=== PATIENT | female | born 1965 | race Two or more races ===

== ENCOUNTER 2016-03-25 15:47 | Inpatient (IN) | payer OTHER ==
[2016-03-25 17:54] VITALS: BMI 26.9
--- NOTE | 2016-03-25 18:51 | HP ---
Admission ROS S - [facility] Chief Complaint: i want to go to rehab Allergies/Adverse Reactions: Allergies Allergy/AdvReac Type Severity Reaction Status Date / Time No Known Allergies Allergy Verified 03/25/16 18:02 History of Present Illness: 50 years old female with long history of alcohol nicotine dependence, denies medical issue has depression is admitted to rehab Exam Limitations: No Limitations - Ebola screening Have you traveled outside of the country in the last 21 days: No Have you had contact with anyone from an Ebola affected area: No Have you been sick,other than usual withdrawal symptoms: No Do you have a fever: No - Review of Systems Constitutional: Weight Stable EENT: reports: No Symptoms Reported Respiratory: reports: Productive cough Cardiac: reports: No Symptoms Reported GI: reports: Constipated : reports: Discharge Musculoskeletal: reports: No Symptoms Reported Integumentary: reports: No Symptoms Reported Neuro: reports: No Symptoms reported Endocrine: reports: No Symptoms Reported Hematology: reports: No Symptoms Reported Psychiatric: reports: Judgement Intact, Orientated x3, Depressed Other Systems: Reviewed and Negative Patient History - Patient Medical History Hx Anemia: No Hx Asthma: No Hx Chronic Obstructive Pulmonary Disease (COPD): No Hx Cancer: No Hx Cardiac Disorders: No Hx Congestive Heart Failure: No Hx Hypertension: No Hx Hypercholesterolemia: No Hx Pacemaker: No HX Cerebrovascular Accident: No Hx Seizures: No Hx Dementia: No Hx Diabetes: No Hx Gastrointestinal Disorders: No Hx Liver Disease: No Hx Genitourinary Disorders: No Hx Sexually Transmitted Disorders: No Hx Renal Disease (ESRD): No Hx Thyroid Disease: No Hx Human Immunodeficiency Virus (HIV): No Hx Hepatitis C: No Hx Depression: Yes (last dose "many years ago") Hx Suicide Attempt: Yes (10 + years ago) Hx Bipolar Disorder: No Hx Schizophrenia: No (denies ) - Patient Surgical History Past Surgical History: Yes Hx Neurologic Surgery: No Hx Cataract Extraction: No Hx Cardiac Surgery: No Hx Lung Surgery: No Hx Breast Surgery: No Hx Breast Biopsy: No Hx Abdominal Surgery: No Hx Appendectomy: No Hx Cholecystectomy: No Hx Genitourinary Surgery: No Hx Section: No Hx Orthopedic Surgery: No Other Surgical History: Tubal ligation 1996, Tonsillectomy 1991 Anesthesia Reaction: No - PPD History Previous Implant?: Yes Documented Results: Negative w/proof Implanted On Prior R Admission?: Yes Date: 11/14/15 PPD to be Administered?: No - Reproductive History Patient is a Female of Child Bearing Age (11 -55 yrs old): Yes Last Menstrual Period: 03/31/07 Patient : No - Smoking Cessation Smoking history: Current every day smoker Have you smoked in the past 12 months: Yes Aproximately how many cigarettes per day: 40 Cigars Per Day: 0 Hx Chewing Tobacco Use: No Initiated information on smoking cessation: Yes 'Breaking Loose' booklet given: 03/25/16 - Substance & Tx. History Hx Alcohol Use: Yes Hx Substance Use: Yes Substance Use Type: Alcohol, Cocaine Hx Substance Use Treatment: Yes - Substances Abused Alcohol Route: Oral Frequency: 1-2 times per week Amount used: fifth volka Age of first use: 5 Date of Last Use: 03/18/16 Crack Route: Smoking Frequency: Daily Amount used: 10 bags Age of first use: 21 Date of Last Use: 03/23/16 Family Disease History - Family Disease History Family Disease History: Diabetes: Brother, CA: Mother (), Other: Father ( ) Admission Physical Exam [facility] - Vital Signs Vital Signs: Vital Signs - 24 hr 03/25/16 17:51 Temperature 97.3 F L Pulse Rate 77 Respiratory 18 Rate Blood Pressure 111/68 - Physical General Appearance: Yes: No Apparent Distress, Nourished, Appropriately Dressed HEENTM: Yes: Hearing grossly Normal, Normal ENT Inspection, Normocephalic, Normal Voice Respiratory: Yes: Chest Non-Tender, Lungs Clear, Normal Breath Sounds, No Respiratory Distress, No Accessory Muscle Use Neck: Yes: Supple, Trachea in good position Breast: Yes: Breasts Symetrical Cardiology: Yes: Regular Rhythm, Regular Rate, S1, S2 Abdominal: Yes: Non Tender, Soft Genitourinary: Yes: Within Normal Limits Back: Yes: Normal Inspection Musculoskeletal: Yes: full range of Motion, Gait Steady Extremities: Yes: Normal Range of Motion, Non-Tender Neurological: Yes: Fully Oriented, Alert, Motor Strength 5/5, Normal Response, Depressed Affect Integumentary: Yes: Warm Lymphatic: Yes: Within Normal Limits - Diagnostic (1) Constipation Current Visit: Yes Status: Acute Qualifiers: Constipation type: slow transit constipation Qualified Code(s): K59.01 - Slow transit constipation (2) Nicotine dependence Current Visit: Yes Status: Acute Qualifiers: Nicotine product type: cigarettes Substance use status: in withdrawal Qualified Code(s): F17.213 - Nicotine dependence, cigarettes, with withdrawal (3) UTI (urinary tract infection) Current Visit: Yes Status: Acute Qualifiers: Hematuria presence: without hematuria (4) Alcohol dependence with uncomplicated withdrawal Current Visit: Yes Status: Acute Cleared for Admission [facility] - Detox or Rehab [facility] Level of Care: Observation Bed Claeared for Rehab Admission: Yes [facility] Breath Alcohol Content Breath Alcohol Content: 0 Urine Pregancy Test - Result Urine Test Results: Negative- NO Line Present Urine Drug Screen - Results Drug Screen Negative: No Urine Drug Screen Results: MARCO ANTONIO-Cocaine, OPI-Opiates, BZO-Benzodiazepines
[2016-03-25] MEDS ORDERED: LOPERAMIDE HCL 2 MG CAPSULE PO PRN (18:54)
[2016-03-25] MEDS ORDERED: MAGNESIUM CITRATE 300 ML BOTTLE PO PRN (18:54)
[2016-03-25] MEDS ORDERED: MAG HYDROX/AL HYDROX/SIMETH 30 ML UNIT-DOSE CUP PO PRN (18:54)
[2016-03-25] MEDS ORDERED: guaiFENesin/D-METHORPHAN HB 10 ML UNIT-DOSE CUPS PO PRN (18:54)
[2016-03-25] MEDS ORDERED: P-EPHED 60MG/TRIPROLIDI 2.5MG TABLET PO PRN (18:54)
[2016-03-25] MEDS ORDERED: MENTHOL/PHENOL 1 EACH UD MM PRN (18:54)
[2016-03-25] MEDS ORDERED: MAGNESIUM HYDROX 2400MG/30ML ORAL SUSPENSION 30 ML CUP PO PRN (18:54)
[2016-03-25] MEDS ORDERED: hydrOXYzine PAMOATE 50 MG CAPSULE (FP) PO PRN (18:54)
[2016-03-25] MEDS: diphenhydrAMINE HCL 50 MG CAPSULE PO PRN (21:42)
[2016-03-25] MEDS: SULFAMETHOXAZOLE/TRIMETHOPRIM 800MG/160MG D.S. TABLET PO SCH (21:42)
[2016-03-25] MEDS: THIAMINE HCL 100 MG TABLET (FP) PO SCH (21:42)
[2016-03-25 23:36] LABS: URINE APPEARANCE SLCLOUDY; URINE BILIRUBIN NEGATIVE (NEGATIVE); URINE BLOOD NEGATIVE (NEGATIVE); URINE COLOR YELLOW; URINE GLUCOSE (UA) NEGATIVE (NEGATIVE); URINE KETONE NEGATIVE (NEGATIVE); URINE NITRITE NEGATIVE (NEGATIVE); URINE PROTEIN NEGATIVE (NEGATIVE); URINE UROBILINOGEN NEGATIVE E.U./dl (0.2-1.0)
[2016-03-25 23:38] LABS: URINE LEUK ESTERASE 2+ (NEGATIVE)
[2016-03-26 00:10] LABS: URINE RBC <1 /hpf (0-3)
[2016-03-26 00:11] LABS: URINE BACTERIA RARE /hpf (NONE SEEN); URINE WBC 5 /hpf (3-5)
[2016-03-26] MEDS: SULFAMETHOXAZOLE/TRIMETHOPRIM 800MG/160MG D.S. TABLET PO SCH ×2 (09:47→21:34)
[2016-03-26] MEDS: NICOTINE 21 MG/24 HOURS TOPICAL PATCH TD SCH (09:47)
[2016-03-26] MEDS: PRENATAL VITAMINS W/ FOLIC ACID TABLET (FP) PO SCH (09:48)
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
[2016-03-26 10:10] LABS: MCH 30.2 pg (25.7-33.7); MCHC 33.6 g/dl (32.0-36.0); MEAN CELL VOLUME 89.8 fl (80-96); MEAN PLT VOLUME 9.3 fl (7.5-11.1); PLATELET COUNT 282 K/MM3 (134-434); RDW 14.2 % (11.6-15.6); WHITE BLOOD COUNT 5.1 K/mm3 (4.0-10.0)
[2016-03-26 10:12] LABS: ALBUMIN 3.8 g/dl (3.4-5.0); ANION GAP 9 (8-16); BILIRUBIN,TOTAL 0.2 mg/dL (0.2-1.0); CALCIUM 8.7 mg/dL (8.5-10.1); CO2 26 mmol/L (21-32); CREATININE 0.9 mg/dL (0.55-1.02); GLUCOSE,RANDOM 80 mg/dL (74-106); SGOT/AST 16 U/L (15-37); SGPT/ALT 17 U/L (12-78); TOT PROT 7.1 g/dl (6.4-8.2)
[2016-03-26 10:13] LABS: ALK PHOS 102 U/L (45-117)
[2016-03-26] MEDS ORDERED: PNEUMOC 13-VAL CONJ-DIP CRM/PF 0.5 ML DISP.SYRIN IM ONE (12:00)
[2016-03-26] MEDS ORDERED: PNEUMOCOCCAL 23 VACCINE 0.5 ML VIAL IM ONE (12:00)
[2016-03-26 12:52] LABS: HIV 1 & 2 AB NEGATIVE; HIV 1 AGp24 NEGATIVE
[2016-03-26] MEDS: PSYLLIUM 5.85 GM PACKET PO SCH (14:00)
--- NOTE | 2016-03-26 14:26 | EKG ---
Test Reason : Blood Pressure : / mmHG Vent. Rate : 080 BPM Atrial Rate : 080 BPM P-R Int : 132 ms QRS Dur : 088 ms QT Int : 380 ms P-R-T Axes : 068 002 044 degrees QTc Int : 438 ms NORMAL SINUS RHYTHM NORMAL ECG NO PREVIOUS ECGS AVAILABLE Confirmed by PAMELA MANE MD ([id number]) on 03/26/2016 2:26:04 PM Referred By: Confirmed By:PAMELA MANE MD
[2016-03-26] MEDS: NICOTINE POLACRILEX 2 MG GUM BC PRN (14:32)
[2016-03-26] MEDS: ACETAMINOPHEN 325 MG TABLET (FP) PO PRN (14:32)
[2016-03-26] MEDS: diphenhydrAMINE HCL 50 MG CAPSULE PO PRN (21:34)
[2016-03-26] MEDS: THIAMINE HCL 100 MG TABLET (FP) PO SCH (21:34)
[2016-03-27] MEDS: NICOTINE 21 MG/24 HOURS TOPICAL PATCH TD SCH (10:23)
[2016-03-27] MEDS: SULFAMETHOXAZOLE/TRIMETHOPRIM 800MG/160MG D.S. TABLET PO SCH ×2 (10:23→21:26)
[2016-03-27] MEDS: PSYLLIUM 5.85 GM PACKET PO SCH (10:23)
[2016-03-27] MEDS: PRENATAL VITAMINS W/ FOLIC ACID TABLET (FP) PO SCH (10:23)
[2016-03-27] MEDS: NICOTINE POLACRILEX 2 MG GUM BC PRN (10:29)
[2016-03-27 16:38] LABS: URINE APPEARANCE SLCLOUDY; URINE BILIRUBIN NEGATIVE (NEGATIVE); URINE BLOOD NEGATIVE (NEGATIVE); URINE COLOR LTYELLOW; URINE GLUCOSE (UA) NEGATIVE (NEGATIVE); URINE KETONE NEGATIVE (NEGATIVE); URINE LEUK ESTERASE NEGATIVE (NEGATIVE); URINE NITRITE NEGATIVE (NEGATIVE); URINE PROTEIN NEGATIVE (NEGATIVE); URINE UROBILINOGEN NEGATIVE E.U./dl (0.2-1.0)
[2016-03-27] MEDS: ACETAMINOPHEN 325 MG TABLET (FP) PO PRN (18:46)
[2016-03-27] MEDS: diphenhydrAMINE HCL 50 MG CAPSULE PO PRN (21:26)
[2016-03-27] MEDS: THIAMINE HCL 100 MG TABLET (FP) PO SCH (21:26)
[2016-03-28] MEDS: ACETAMINOPHEN 325 MG TABLET (FP) PO PRN ×2 (06:30→18:49)
[2016-03-28] MEDS: FLUoxetine HCL 20 MG CAPSULE (FP) PO SCH (10:08)
[2016-03-28] MEDS: NICOTINE 21 MG/24 HOURS TOPICAL PATCH TD SCH (10:08)
[2016-03-28] MEDS: SULFAMETHOXAZOLE/TRIMETHOPRIM 800MG/160MG D.S. TABLET PO SCH ×2 (10:09→21:21)
[2016-03-28] MEDS: PSYLLIUM 5.85 GM PACKET PO SCH (10:09)
[2016-03-28] MEDS: PRENATAL VITAMINS W/ FOLIC ACID TABLET (FP) PO SCH (10:09)
[2016-03-28] MEDS: NICOTINE POLACRILEX 2 MG GUM BC PRN (18:51)
[2016-03-28] MEDS: QUEtiapine FUMARATE 400 MG TABLET PO SCH (21:21)
[2016-03-28] MEDS: THIAMINE HCL 100 MG TABLET (FP) PO SCH (21:22)
[2016-03-29] MEDS: NICOTINE 21 MG/24 HOURS TOPICAL PATCH TD SCH (10:09)
[2016-03-29] MEDS: PSYLLIUM 5.85 GM PACKET PO SCH (10:09)
[2016-03-29] MEDS: PRENATAL VITAMINS W/ FOLIC ACID TABLET (FP) PO SCH (10:11)
[2016-03-29] MEDS: FLUoxetine HCL 20 MG CAPSULE (FP) PO SCH (10:11)
[2016-03-29] MEDS: SULFAMETHOXAZOLE/TRIMETHOPRIM 800MG/160MG D.S. TABLET PO SCH ×2 (10:11→21:16)
[2016-03-29] MEDS: NICOTINE POLACRILEX 2 MG GUM BC PRN (10:12)
[2016-03-29] MEDS: THIAMINE HCL 100 MG TABLET (FP) PO SCH (21:16)
[2016-03-29] MEDS: QUEtiapine FUMARATE 400 MG TABLET PO SCH (21:16)
[2016-03-30] MEDS: PSYLLIUM 5.85 GM PACKET PO SCH (09:58)
[2016-03-30] MEDS: NICOTINE 21 MG/24 HOURS TOPICAL PATCH TD SCH (09:58)
[2016-03-30] MEDS: SULFAMETHOXAZOLE/TRIMETHOPRIM 800MG/160MG D.S. TABLET PO SCH (09:58)
[2016-03-30] MEDS: FLUoxetine HCL 20 MG CAPSULE (FP) PO SCH (09:58)
[2016-03-30] MEDS: PRENATAL VITAMINS W/ FOLIC ACID TABLET (FP) PO SCH (09:58)
[2016-03-30] MEDS: PARoxetine HCL 20 MG TABLET (FP) PO SCH (18:42)
[2016-03-30] MEDS ORDERED: PT OWN MED DRAWER 7, Y5N ONE (19:40)
[2016-03-30] MEDS: QUEtiapine FUMARATE 400 MG TABLET PO SCH (21:36)
[2016-03-30] MEDS: THIAMINE HCL 100 MG TABLET (FP) PO SCH (21:36)
[2016-03-31] MEDS: PRENATAL VITAMINS W/ FOLIC ACID TABLET (FP) PO SCH (10:02)
[2016-03-31] MEDS: PARoxetine HCL 20 MG TABLET (FP) PO SCH (10:02)
[2016-03-31] MEDS: PSYLLIUM 5.85 GM PACKET PO SCH (10:03)
[2016-03-31] MEDS: NICOTINE POLACRILEX 2 MG GUM BC PRN (10:03)
[2016-03-31] MEDS: NICOTINE 21 MG/24 HOURS TOPICAL PATCH TD SCH (10:03)
[2016-03-31] MEDS: THIAMINE HCL 100 MG TABLET (FP) PO SCH (21:25)
[2016-03-31] MEDS: QUEtiapine FUMARATE 400 MG TABLET PO SCH (21:25)
[2016-04-01] MEDS: NICOTINE 21 MG/24 HOURS TOPICAL PATCH TD SCH (10:01)
[2016-04-01] MEDS: PRENATAL VITAMINS W/ FOLIC ACID TABLET (FP) PO SCH (10:01)
[2016-04-01] MEDS: PARoxetine HCL 20 MG TABLET (FP) PO SCH (10:01)
[2016-04-01] MEDS: PSYLLIUM 5.85 GM PACKET PO SCH (10:01)
[2016-04-01] MEDS: NICOTINE POLACRILEX 2 MG GUM BC PRN (10:03)
--- NOTE | 2016-04-01 14:24 | PN ---
[facility] Progress Note Note: PT. C/O PAIN,NUMBNESS & TINGLING LUE FROM C-SPINE. Vital Signs - 8 hr 04/01/16 07:01 Temperature 97.5 F L Pulse Rate 81 Respiratory 18 Rate Blood Pressure 110/72 Laboratory Tests 03/25/16 03/26/16 03/26/16 22:28 07:00 07:15 WBC 5.1 RBC 4.20 Hgb 12.7 Hct 37.7 MCV 89.8 MCHC 33.6 RDW 14.2 Plt Count 282 MPV 9.3 Sodium Potassium Chloride Carbon Dioxide Anion Gap BUN Creatinine Creat Clearance w eGFR Random Glucose Calcium Total Bilirubin AST ALT Alkaline Phosphatase Total Protein Albumin Urine Color Yellow Urine Appearance Slcloudy Urine pH 6.0 Ur Specific [place] 1.009 Urine Protein Negative Urine Glucose (UA) Negative Urine Ketones Negative Urine Blood Negative Urine Nitrite Negative Urine Bilirubin Negative Urine Urobilinogen Negative Ur Leukocyte Esterase 2+ H D Urine RBC <1 Urine WBC 5 Ur Epithelial Cells Rare Urine Bacteria Rare RPR Titer HIV 1&2 Antibody Screen Negative HIV P24 Antigen Negative 03/26/16 03/26/16 03/27/16 07:15 07:15 16:25 WBC RBC Hgb Hct MCV MCHC RDW Plt Count MPV Sodium 141 Potassium 4.3 Chloride 106 Carbon Dioxide 26 Anion Gap 9 BUN 15 Creatinine 0.9 Creat Clearance w eGFR > 60 Random Glucose 80 Calcium 8.7 Total Bilirubin 0.2 D AST 16 ALT 17 Alkaline Phosphatase 102 Total Protein 7.1 Albumin 3.8 Urine Color Ltyellow Urine Appearance Slcloudy Urine pH 6.0 Ur Specific [place] 1.019 Urine Protein Negative Urine Glucose (UA) Negative Urine Ketones Negative Urine Blood Negative Urine Nitrite Negative Urine Bilirubin Negative Urine Urobilinogen Negative Ur Leukocyte Esterase Negative Urine RBC Urine WBC Ur Epithelial Cells Urine Bacteria RPR Titer Nonreactive HIV 1&2 Antibody Screen HIV P24 Antigen X-RAY = DEGENERATIVE CHANGES FROM C3 TO C5 WITH ANTEROLISTHESIS P : CONTINUE NSAID REFER TO NEUROLOGY CLINIC
[2016-04-01] MEDS: LIDOCAINE 5% TOPICAL PATCH TP SCH (14:49)
[2016-04-01] MEDS: QUEtiapine FUMARATE 400 MG TABLET PO SCH (21:17)
[2016-04-01] MEDS: THIAMINE HCL 100 MG TABLET (FP) PO SCH (21:17)
[2016-04-02] MEDS: PSYLLIUM 5.85 GM PACKET PO SCH (10:14)
[2016-04-02] MEDS: LIDOCAINE 5% TOPICAL PATCH TP SCH (10:14)
[2016-04-02] MEDS: PARoxetine HCL 20 MG TABLET (FP) PO SCH (10:14)
[2016-04-02] MEDS: PRENATAL VITAMINS W/ FOLIC ACID TABLET (FP) PO SCH (10:14)
[2016-04-02] MEDS: NICOTINE 21 MG/24 HOURS TOPICAL PATCH TD SCH (10:15)
[2016-04-02] MEDS: NICOTINE POLACRILEX 2 MG GUM BC PRN (10:17)
[2016-04-02] MEDS: IBUPROFEN 400 MG TABLET (FP) PO PRN (10:51)
[2016-04-02] MEDS: QUEtiapine FUMARATE 400 MG TABLET PO SCH (21:20)
[2016-04-02] MEDS: THIAMINE HCL 100 MG TABLET (FP) PO SCH (21:20)
[2016-04-03] MEDS: LIDOCAINE 5% TOPICAL PATCH TP SCH (10:09)
[2016-04-03] MEDS: NICOTINE 21 MG/24 HOURS TOPICAL PATCH TD SCH (10:12)
[2016-04-03] MEDS: PARoxetine HCL 20 MG TABLET (FP) PO SCH (10:13)
[2016-04-03] MEDS: PRENATAL VITAMINS W/ FOLIC ACID TABLET (FP) PO SCH (10:13)
[2016-04-03] MEDS: PSYLLIUM 5.85 GM PACKET PO SCH (10:13)
[2016-04-03] MEDS: NICOTINE POLACRILEX 2 MG GUM BC PRN (10:14)
[2016-04-03] MEDS: IBUPROFEN 400 MG TABLET (FP) PO PRN (13:39)
--- NOTE | 2016-04-03 13:48 | PN ---
Psychiatric Progress Note Vital Signs: Vital Signs Period Temp Pulse Resp BP Sys/Clay Pulse Ox Last 24 Hr 97.5 F 88 16-16 91/59 Date of Session: 04/03/16 Chief Complaint:: My sleep is still a problem. HPI: Patient addressed Alcohol,Cocaine and Opioid dependence comorbid with Substance induced mood and sleep disorder. ROS: Significant for UTI. Current Medications: Active Medications Generic Name Dose Route Start Last Admin Trade Name Freq PRN Reason Stop Dose Admin Acetaminophen 650 mg 03/25/16 18:54 03/28/16 18:49 Tylenol - PO 650 mg Q4H PRN Administration PAIN Al Hydroxide/Mg Hydroxide 30 ml 03/25/16 18:54 Mylanta Oral Suspension - PO Q6H PRN DYSPEPSIA Diphenhydramine HCl 50 mg 03/25/16 18:54 03/27/16 21:26 Benadryl - PO 50 mg HSMR1 PRN Administration INSOMNIA Eucalyptus/Menthol/Phenol/Sorbitol 1 each 03/25/16 18:54 Cepastat Lozenge - MM Q4H PRN SORE THROAT Guaifenesin 10 ml 03/25/16 18:54 Robitussin Dm - PO Q6H PRN COUGH Hydroxyzine Pamoate 50 mg 03/25/16 18:54 Vistaril - PO Q4H PRN AGITATION Ibuprofen 400 mg 03/25/16 18:54 04/03/16 13:39 Motrin - PO 400 mg Q6H PRN Administration SEVERE PAIN Lidocaine 1 patch 04/01/16 14:30 04/03/16 10:09 Lidoderm Patch - TP 1 patch DAILY ADRIANA Administration Loperamide HCl 4 mg 03/25/16 18:54 Imodium - PO Q6H PRN DIARRHEA Magnesium Citrate 300 ml 03/25/16 18:54 Citroma - PO Q48H PRN CONSTIPATION Magnesium Hydroxide 30 ml 03/25/16 18:54 Milk Of Magnesia - PO DAILY PRN CONSTIPATION Nicotine 21 mg 03/26/16 10:00 04/03/16 10:12 Nicoderm Patch - TD 21 mg DAILY ADRIANA Administration Nicotine Polacrilex 2 mg 03/25/16 18:54 04/03/16 10:14 Nicorette Gum - BC 2 mg Q2H PRN Administration NICOTINE REPLACEMENT RX Paroxetine HCl 40 mg 03/30/16 16:15 04/03/16 10:13 Paxil - PO 40 mg DAILY ADRIANA Administration Multivit/Folic Acid/Iron 1 tab 03/26/16 10:00 04/03/16 10:13 Vitamins (Sjr) - PO 1 tab DAILY ADRIANA Administration Pseudoephedrine/Triprolidine 1 combo 03/25/16 18:54 Actifed - PO TID PRN NASAL CONGESTION Psyllium Hydrophilic Mucilloid 5.85 gm 03/26/16 13:00 04/03/16 10:13 Metamucil (Sugar-Free) - PO 5.85 gm DAILY ADRIANA Administration Quetiapine Fumarate 400 mg 03/28/16 22:00 04/02/16 21:20 Seroquel - PO 400 mg HS ADRIANA Administration Thiamine HCl 100 mg 03/25/16 22:00 04/02/16 21:20 Vitamin B1 - PO 100 mg HS ADRIANA Administration Trazodone HCl 100 mg 04/03/16 22:00 Desyrel - PO HS ADRIANA Current Side Effect: No Lab tests ordered: No Lab tests reviewed: Yes Provider note:: Chart was reviuewed,patient was evaluated and treatment plan including medication management was discussed with the patient as well.Patient addressed serios sleeping difficulties,inability to fall asleep,interrupted sleep pattern.Properties of Trazodone has been discussed with the patient including side effects,benefits and dose adjustemnet.Trazodone 100 mg po hs will be started tonight. Supportive therapy proivided. Total face to face time:: 30 Psychiatric Treatment Plan - Problem List (1) Nicotine dependence Current Visit: Yes Qualifiers: Nicotine product type: cigarettes Substance use status: in withdrawal Qualified Code(s): F17.213 - Nicotine dependence, cigarettes, with withdrawal (2) UTI (urinary tract infection) Current Visit: Yes Qualifiers: Hematuria presence: without hematuria (3) Bacterial vaginosis Current Visit: Yes (4) Alcohol dependence Current Visit: Yes (5) Cocaine dependence Current Visit: Yes (6) Opioid dependence Current Visit: Yes
[2016-04-03] MEDS: THIAMINE HCL 100 MG TABLET (FP) PO SCH (21:36)
[2016-04-03] MEDS: QUEtiapine FUMARATE 400 MG TABLET PO SCH (21:36)
[2016-04-03] MEDS: traZODone HCL 100 MG TABLET (FP) PO SCH (21:36)
[2016-04-04] MEDS: PRENATAL VITAMINS W/ FOLIC ACID TABLET (FP) PO SCH (09:00)
[2016-04-04] MEDS: PARoxetine HCL 20 MG TABLET (FP) PO SCH (09:01)
[2016-04-04] MEDS: IBUPROFEN 400 MG TABLET (FP) PO PRN (09:01)
[2016-04-04] MEDS: PSYLLIUM 5.85 GM PACKET PO SCH (09:57)
[2016-04-04] MEDS: NICOTINE 21 MG/24 HOURS TOPICAL PATCH TD SCH (09:57)
[2016-04-04] MEDS: NICOTINE POLACRILEX 2 MG GUM BC PRN (09:59)
[2016-04-04] MEDS: LIDOCAINE 5% TOPICAL PATCH TP SCH (09:59)
[2016-04-04] MEDS: THIAMINE HCL 100 MG TABLET (FP) PO SCH (21:27)
[2016-04-04] MEDS: QUEtiapine FUMARATE 400 MG TABLET PO SCH (21:27)
[2016-04-04] MEDS: traZODone HCL 100 MG TABLET (FP) PO SCH (21:27)
[2016-04-05] MEDS: NICOTINE POLACRILEX 2 MG GUM BC PRN (08:49)
[2016-04-05] MEDS: IBUPROFEN 400 MG TABLET (FP) PO PRN (08:49)
[2016-04-05] MEDS: PRENATAL VITAMINS W/ FOLIC ACID TABLET (FP) PO SCH (09:46)
[2016-04-05] MEDS: LIDOCAINE 5% TOPICAL PATCH TP SCH (09:46)
[2016-04-05] MEDS: PSYLLIUM 5.85 GM PACKET PO SCH (09:46)
[2016-04-05] MEDS: PARoxetine HCL 20 MG TABLET (FP) PO SCH (09:46)
[2016-04-05] MEDS: NICOTINE 21 MG/24 HOURS TOPICAL PATCH TD SCH (09:47)
[2016-04-05] MEDS: THIAMINE HCL 100 MG TABLET (FP) PO SCH (21:37)
[2016-04-05] MEDS: traZODone HCL 100 MG TABLET (FP) PO SCH (21:37)
[2016-04-05] MEDS: QUEtiapine FUMARATE 400 MG TABLET PO SCH (21:37)
[2016-04-06] MEDS: PARoxetine HCL 20 MG TABLET (FP) PO SCH (10:01)
[2016-04-06] MEDS: NICOTINE 21 MG/24 HOURS TOPICAL PATCH TD SCH (10:01)
[2016-04-06] MEDS: LIDOCAINE 5% TOPICAL PATCH TP SCH (10:01)
[2016-04-06] MEDS: NICOTINE POLACRILEX 2 MG GUM BC PRN (10:01)
[2016-04-06] MEDS: PSYLLIUM 5.85 GM PACKET PO SCH (10:01)
[2016-04-06] MEDS: PRENATAL VITAMINS W/ FOLIC ACID TABLET (FP) PO SCH (10:01)
[2016-04-06] MEDS: IBUPROFEN 400 MG TABLET (FP) PO PRN (10:03)
[2016-04-06] MEDS: THIAMINE HCL 100 MG TABLET (FP) PO SCH (21:20)
[2016-04-06] MEDS: traZODone HCL 100 MG TABLET (FP) PO SCH (21:20)
[2016-04-06] MEDS: QUEtiapine FUMARATE 400 MG TABLET PO SCH (21:20)
[2016-04-07] MEDS: LIDOCAINE 5% TOPICAL PATCH TP SCH (09:49)
[2016-04-07] MEDS: PSYLLIUM 5.85 GM PACKET PO SCH (09:49)
[2016-04-07] MEDS: NICOTINE 21 MG/24 HOURS TOPICAL PATCH TD SCH (09:50)
[2016-04-07] MEDS: PARoxetine HCL 20 MG TABLET (FP) PO SCH (09:51)
[2016-04-07] MEDS: PRENATAL VITAMINS W/ FOLIC ACID TABLET (FP) PO SCH (09:51)
[2016-04-07] MEDS: IBUPROFEN 400 MG TABLET (FP) PO PRN (09:52)
[2016-04-07] MEDS: NICOTINE POLACRILEX 2 MG GUM BC PRN (09:53)
--- NOTE | 2016-04-07 14:22 | PN ---
[facility] Progress Note Note: PT. C/O HERPETIC LESION ON LABIA,SHE HAS NOT HAD AN OUT BREAK FOR SOMETIME. P : VALTREX 500MG BID
[2016-04-07] MEDS ORDERED: PT OWN MED DRAWER 7, Y5N ONE (20:29)
[2016-04-07] MEDS: traZODone HCL 100 MG TABLET (FP) PO SCH (21:24)
[2016-04-07] MEDS: THIAMINE HCL 100 MG TABLET (FP) PO SCH (21:24)
[2016-04-07] MEDS: valACYclovir HCL 500 MG TABLET (FP) PO SCH (21:24)
[2016-04-07] MEDS: QUEtiapine FUMARATE 400 MG TABLET PO SCH (21:24)
[2016-04-08] MEDS: NICOTINE POLACRILEX 2 MG GUM BC PRN (10:22)
[2016-04-08] MEDS: PRENATAL VITAMINS W/ FOLIC ACID TABLET (FP) PO SCH (10:22)
[2016-04-08] MEDS: IBUPROFEN 400 MG TABLET (FP) PO PRN (10:22)
[2016-04-08] MEDS: valACYclovir HCL 500 MG TABLET (FP) PO SCH ×2 (10:22→21:26)
[2016-04-08] MEDS: PARoxetine HCL 20 MG TABLET (FP) PO SCH (10:23)
[2016-04-08] MEDS: NICOTINE 21 MG/24 HOURS TOPICAL PATCH TD SCH (10:23)
[2016-04-08] MEDS: LIDOCAINE 5% TOPICAL PATCH TP SCH (10:23)
[2016-04-08] MEDS: PSYLLIUM 5.85 GM PACKET PO SCH (10:24)
[2016-04-08] MEDS: ACETAMINOPHEN 325 MG TABLET (FP) PO PRN (15:35)
[2016-04-08] MEDS ORDERED: PT OWN MED DRAWER 7, Y5N ONE (19:31)
[2016-04-08] MEDS: QUEtiapine FUMARATE 400 MG TABLET PO SCH (21:26)
[2016-04-08] MEDS: traZODone HCL 100 MG TABLET (FP) PO SCH (21:26)
[2016-04-08] MEDS: THIAMINE HCL 100 MG TABLET (FP) PO SCH (21:26)
[2016-04-09] MEDS ORDERED: PT OWN MED DRAWER 7, Y5N ONE (08:18)
[2016-04-09] MEDS: PSYLLIUM 5.85 GM PACKET PO SCH (09:59)
[2016-04-09] MEDS: LIDOCAINE 5% TOPICAL PATCH TP SCH (09:59)
[2016-04-09] MEDS: NICOTINE 21 MG/24 HOURS TOPICAL PATCH TD SCH (10:00)
[2016-04-09] MEDS: valACYclovir HCL 500 MG TABLET (FP) PO SCH ×2 (10:00→21:37)
[2016-04-09] MEDS: PRENATAL VITAMINS W/ FOLIC ACID TABLET (FP) PO SCH (10:00)
[2016-04-09] MEDS: PARoxetine HCL 20 MG TABLET (FP) PO SCH (10:00)
[2016-04-09] MEDS: IBUPROFEN 400 MG TABLET (FP) PO PRN ×2 (10:01→21:36)
[2016-04-09] MEDS: NICOTINE POLACRILEX 2 MG GUM BC PRN (10:02)
[2016-04-09] MEDS: traZODone HCL 100 MG TABLET (FP) PO SCH (21:37)
[2016-04-09] MEDS: QUEtiapine FUMARATE 400 MG TABLET PO SCH (21:37)
[2016-04-09] MEDS: THIAMINE HCL 100 MG TABLET (FP) PO SCH (21:37)
[2016-04-10] MEDS ORDERED: PT OWN MED DRAWER 7, Y5N ONE (08:38)
[2016-04-10] MEDS: PSYLLIUM 5.85 GM PACKET PO SCH (10:10)
[2016-04-10] MEDS: PRENATAL VITAMINS W/ FOLIC ACID TABLET (FP) PO SCH (10:10)
[2016-04-10] MEDS: valACYclovir HCL 500 MG TABLET (FP) PO SCH ×2 (10:10→21:21)
[2016-04-10] MEDS: PARoxetine HCL 20 MG TABLET (FP) PO SCH (10:10)
[2016-04-10] MEDS: LIDOCAINE 5% TOPICAL PATCH TP SCH (10:11)
[2016-04-10] MEDS: NICOTINE 21 MG/24 HOURS TOPICAL PATCH TD SCH (10:11)
[2016-04-10] MEDS: THIAMINE HCL 100 MG TABLET (FP) PO SCH (21:20)
[2016-04-10] MEDS: QUEtiapine FUMARATE 400 MG TABLET PO SCH (21:20)
[2016-04-10] MEDS: traZODone HCL 100 MG TABLET (FP) PO SCH (21:21)
[2016-04-11] MEDS: LIDOCAINE 5% TOPICAL PATCH TP SCH (09:09)
[2016-04-11] MEDS: NICOTINE 21 MG/24 HOURS TOPICAL PATCH TD SCH (09:10)
[2016-04-11] MEDS: PARoxetine HCL 20 MG TABLET (FP) PO SCH (09:10)
[2016-04-11] MEDS: PSYLLIUM 5.85 GM PACKET PO SCH (09:10)
[2016-04-11] MEDS: IBUPROFEN 400 MG TABLET (FP) PO PRN ×2 (09:11→18:57)
[2016-04-11] MEDS: PRENATAL VITAMINS W/ FOLIC ACID TABLET (FP) PO SCH (09:11)
[2016-04-11] MEDS: valACYclovir HCL 500 MG TABLET (FP) PO SCH ×2 (09:11→21:29)
[2016-04-11] MEDS: NICOTINE POLACRILEX 2 MG GUM BC PRN (09:12)
[2016-04-11] MEDS: THIAMINE HCL 100 MG TABLET (FP) PO SCH (21:29)
[2016-04-11] MEDS: QUEtiapine FUMARATE 400 MG TABLET PO SCH (21:29)
[2016-04-11] MEDS: traZODone HCL 100 MG TABLET (FP) PO SCH (21:29)
[2016-04-12] MEDS: NICOTINE 21 MG/24 HOURS TOPICAL PATCH TD SCH (09:59)
[2016-04-12] MEDS: PRENATAL VITAMINS W/ FOLIC ACID TABLET (FP) PO SCH (10:00)
[2016-04-12] MEDS: PARoxetine HCL 20 MG TABLET (FP) PO SCH (10:00)
[2016-04-12] MEDS: valACYclovir HCL 500 MG TABLET (FP) PO SCH ×2 (10:00→21:10)
[2016-04-12] MEDS: PSYLLIUM 5.85 GM PACKET PO SCH (10:01)
[2016-04-12] MEDS: LIDOCAINE 5% TOPICAL PATCH TP SCH (10:01)
[2016-04-12] MEDS: IBUPROFEN 400 MG TABLET (FP) PO PRN (10:01)
[2016-04-12] MEDS: NICOTINE POLACRILEX 2 MG GUM BC PRN (10:02)
[2016-04-12] MEDS: THIAMINE HCL 100 MG TABLET (FP) PO SCH (21:10)
[2016-04-12] MEDS: traZODone HCL 100 MG TABLET (FP) PO SCH (21:10)
[2016-04-12] MEDS: QUEtiapine FUMARATE 400 MG TABLET PO SCH (21:10)
[2016-04-13] MEDS: PRENATAL VITAMINS W/ FOLIC ACID TABLET (FP) PO SCH (10:01)
[2016-04-13] MEDS: PARoxetine HCL 20 MG TABLET (FP) PO SCH (10:01)
[2016-04-13] MEDS: valACYclovir HCL 500 MG TABLET (FP) PO SCH ×2 (10:01→21:26)
[2016-04-13] MEDS: NICOTINE 21 MG/24 HOURS TOPICAL PATCH TD SCH (10:02)
[2016-04-13] MEDS: LIDOCAINE 5% TOPICAL PATCH TP SCH (10:02)
[2016-04-13] MEDS: NICOTINE POLACRILEX 2 MG GUM BC PRN (10:04)
[2016-04-13] MEDS: PSYLLIUM 5.85 GM PACKET PO SCH (10:04)
[2016-04-13] MEDS: QUEtiapine FUMARATE 400 MG TABLET PO SCH (21:26)
[2016-04-13] MEDS: THIAMINE HCL 100 MG TABLET (FP) PO SCH (21:26)
[2016-04-13] MEDS: IBUPROFEN 400 MG TABLET (FP) PO PRN (21:27)
[2016-04-13] MEDS: traZODone HCL 100 MG TABLET (FP) PO SCH (21:29)
[2016-04-14 07:30] VITALS: BP 94/62; PULSE 85; TEMP 98.1
[2016-04-14] MEDS ORDERED: PT OWN MED DRAWER 7, Y5N ONE (09:10)
[2016-04-14] MEDS: PRENATAL VITAMINS W/ FOLIC ACID TABLET (FP) PO SCH (09:12)
[2016-04-14] MEDS: valACYclovir HCL 500 MG TABLET (FP) PO SCH (09:12)
[2016-04-14] MEDS: NICOTINE 21 MG/24 HOURS TOPICAL PATCH TD SCH (09:12)
[2016-04-14] MEDS: LIDOCAINE 5% TOPICAL PATCH TP SCH (09:12)
[2016-04-14] MEDS: PARoxetine HCL 20 MG TABLET (FP) PO SCH (09:12)
[2016-04-14] MEDS: PSYLLIUM 5.85 GM PACKET PO SCH (09:13)
[2016-04-14] MEDS: NICOTINE POLACRILEX 2 MG GUM BC PRN (09:14)
== END 2016-04-14 09:17 | disposition home or self-care (01) | DRG 772 ==
LOC: YASAS 15:47 → Y3W 18:33 → Y3E 03-26 13:08
PROVIDERS: ADMIT Psychiatry & Neurology Psychiatry; ATTEND Psychiatry & Neurology Psychiatry
PROC: HZ42ZZZ Group Counseling for Substance Abuse Treatment, Cognitive-Behavioral (ICD-10-PCS; principal; 2016-04-14)
DX: F10.230 Alcohol dependence with withdrawal, uncomplicated (principal); F14.20 Cocaine dependence, uncomplicated; F17.213 Nicotine dependence, cigarettes, with withdrawal; N39.0 Urinary tract infection, site not specified; K59.01 Slow transit constipation
CPT/HCPCS: 36415; 72050-TC; 80053; 81003; 81015; 85027; 86593; 87389; 90732; 93005; 93010; G0009

== ENCOUNTER 2018-10-04 12:04 | Inpatient (IN) | payer OTHER ==
[2018-10-04 12:44] VITALS: BMI 24.6
--- NOTE | 2018-10-04 14:23 | HP ---
CIWA Score Nausea/Vomitin-Mild Nausea/No Vomiting Muscle Tremors: 1-None Visible, but [place] Anxiety: 3 Agitation: 3 Paroxysmal Sweats: No Perspiration Orientation: 1-Uncertain about Date Tacttile Disturbances: 0-None Auditory Disturbances: 0-None Visual Disturbances: 0-None Headache: 3-Moderate (patient wants to enter rehab just relapsed 9 months ago. Patient sober from 04/17 till 9 months ago) CIWA-Ar Total Score: 12 - Admission Criteria [facility] Guidelines: Admission for Medically Managed Detox: Requires at least one of the followin. CIWA greater than 12 2. Seizures within the past 24 hours 3. Delirium tremens within the past 24 hours 4. Hallucinations within the past 24 hours 5. Acute intervention needed for co occurring medical disorder 6. Acute intervention needed for co occurring psychiatric disorder 7. Severe withdrawal that cannot be handled at a lower level of care (continued vomiting, continued diarrhea, abnormal vital signs) requiring intravenous medication and/or fluids 8. Admission ROS [facility] Chief Complaint: " I am tired and I didn't mean to relapsed but it happened." Allergies/Adverse Reactions: Allergies Allergy/AdvReac Type Severity Reaction Status Date / Time No Known Allergies Allergy Verified 03/25/16 18:02 History of Present Illness: Patient is a 53 year old female with history of cocaine/crack, alcohol dependence, and benzodiazpine use. Patient is now drinks 1 bottle 1/2 pint vodka every other day. Patient is using crack $500-600/day. Patient is illicitly buying 5 pills per day, $50/day. Patient smokes ciggarettes 5 per day. PMHx: Heart murmur, Scoliosis, Hyperlipidemia, Pre-cancerous changes of cervix. PSurg Hx: Tubal ligation, Tonsillectomy PsychHx: Bipolar, Depression, Shizophrenia with psychotic features. 5 meds but last taken 2 weeks ago. Patient denies legal issues. Patient has family support systems in place. Exam Limitations: No Limitations - Ebola screening Have you traveled outside of the country in the last 21 days: No Have you had contact with anyone from an Ebola affected area: No Do you have a fever: No - Review of Systems Constitutional: Chills EENT: reports: No Symptoms Reported Respiratory: reports: No Symptoms reported Cardiac: reports: No Symptoms Reported GI: reports: No Symptoms Reported : reports: No Symptoms Reported Musculoskeletal: reports: No Symptoms Reported Integumentary: reports: No Symptoms Reported Neuro: reports: Headache Endocrine: reports: No Symptoms Reported Hematology: reports: No Symptoms Reported Psychiatric: reports: Orientated x3, Anxious Patient History - Patient Medical History Hx Anemia: No Hx Asthma: No Hx Chronic Obstructive Pulmonary Disease (COPD): No Hx Cancer: No Hx Cardiac Disorders: No Hx Congestive Heart Failure: No Hx Hypertension: No Hx Hypercholesterolemia: No Hx Pacemaker: No HX Cerebrovascular Accident: No Hx Seizures: No Hx Dementia: No Hx Diabetes: No Hx Gastrointestinal Disorders: No Hx Liver Disease: No Hx Genitourinary Disorders: No Hx Sexually Transmitted Disorders: Yes Hx Renal Disease (ESRD): No Hx Thyroid Disease: No Hx Human Immunodeficiency Virus (HIV): No Hx Hepatitis C: No Hx Depression: Yes (last dose "many years ago") Hx Suicide Attempt: Yes (10 + years ago) Hx Bipolar Disorder: No Hx Schizophrenia: No (denies ) - Patient Surgical History Past Surgical History: Yes Hx Neurologic Surgery: No Hx Cataract Extraction: No Hx Cardiac Surgery: No Hx Lung Surgery: No Hx Breast Surgery: No Hx Breast Biopsy: No Hx Abdominal Surgery: No Hx Appendectomy: No Hx Cholecystectomy: No Hx Genitourinary Surgery: No Hx Section: No Hx Orthopedic Surgery: No Other Surgical History: Tubal ligation 1996, Tonsillectomy 1991 Anesthesia Reaction: No - PPD History Date: 11/14/15 Results: 0mm - Reproductive History Last Menstrual Period: 03/31/07 - Smoking Cessation Smoking history: Current every day smoker Have you smoked in the past 12 months: Yes Aproximately how many cigarettes per day: 40 Cigars Per Day: 0 Hx Chewing Tobacco Use: No Initiated information on smoking cessation: Yes 'Breaking Loose' booklet given: 10/04/18 - Substance & Tx. History Hx Alcohol Use: Yes (uses 1/2 pint every other day) Hx Substance Use: Yes Substance Use Type: Cocaine Hx Substance Use Treatment: Yes (last detox and rehab in 04/2016) - Substances abused Crack Substance route: Smoking Frequency: Daily Amount used: $500 Age of first use: 18 Date of last use: 10/02/18 Family Disease History - Family Disease History Family Disease History: Diabetes: Brother, CA: Mother (), Other: Father ( ) Admission Physical Exam [facility] - Vital Signs Vital Signs: Vital Signs - 24 hr 10/04/18 12:32 Temperature 98.1 F Pulse Rate 73 Respiratory 18 Rate Blood Pressure 94/61 - Physical General Appearance: Yes: Moderate Distress HEENTM: Yes: EOMI, Hearing grossly Normal, Normocephalic, Normal Voice, BRITTA, Pharynx Normal Respiratory: Yes: Chest Non-Tender, Lungs Clear, Normal Breath Sounds, No Accessory Muscle Use Neck: Yes: No masses,lesions,Nodules Breast: Yes: Breast Exam Deferred Cardiology: Yes: Regular Rhythm, Regular Rate, S1, S2 Abdominal: Yes: Soft, Increased Bowel Sounds Genitourinary: Yes: Other (foul smelling urine) Back: Yes: Normal Inspection Musculoskeletal: Yes: full range of Motion, Gait Steady Extremities: Yes: Normal Capillary Refill, Normal Inspection, Non-Tender Neurological: Yes: manager truck II-XII NML intact, Fully Oriented, Alert, Motor Strength 5/5 Integumentary: Yes: Normal Color, Warm Lymphatic: Yes: Within Normal Limits - Diagnostic (1) Nicotine dependence Current Visit: Yes Status: Acute Qualifiers: Nicotine product type: cigarettes Substance use status: in withdrawal Qualified Code(s): F17.213 - Nicotine dependence, cigarettes, with withdrawal (2) Alcohol dependence Current Visit: Yes Status: Chronic (3) Cocaine dependence Current Visit: Yes Status: Chronic Cleared for Admission [facility] - Detox or Rehab [facility] Level of Care: Medically Managed Screened but not Admitted - Documentation of Visit Screened but not Admitted: No Breathalyzer - Breathalyzer Breathalyzer: 0 Vital Signs - Vital Signs Vital signs refused: No Temperature: 98.1 F Temperature source: Oral Pulse Rate: 73 Respiratory Rate: 18 Blood Pressure: 94/61 BP Location: Left Arm Blood Pressure position: Sitting - Height Height: 4 ft 11 in - Weight Weight: 122 lb Weight measurement method: Standing scale - BMI Body Mass Index (BMI): 24.6 - Bowel Function Bowel Movement: No POC Urine test - Test device test lot number: not applicable Urine Drug Screen - Test Device Lot number: [id number] Expiration date: 10/28/18 - Control Is test valid?: Yes - Results Drug screen NEGATIVE: No Urine drug screen results: MARCO ANTONIO-Cocaine, BZO-Benzodiazepines Inpatient Rehab Admission - Rehab Decision to Admit Inpatient rehab admission?: Yes - Initial Determination Are CD services needed?: Yes Free of communicable disease: Yes Not in need of hospitalization: Yes - Rehab Admission Criteria Previous failed treatment: Yes Poor recovery environment: Yes Comorbidities: Yes Lacks judgement: Yes Patient is meeting Inpatient Rehab admission criteria:: Yes
[2018-10-04] MEDS ORDERED: guaiFENesin 200 MG/10 ML 10 ML UNIT-DOSE CUPS PO PRN (14:31)
[2018-10-04] MEDS ORDERED: ACETAMINOPHEN 325 MG TABLET (FP) PO PRN (14:31)
[2018-10-04] MEDS ORDERED: MAGNESIUM CITRATE 300 ML BOTTLE PO PRN (14:31)
[2018-10-04] MEDS ORDERED: MAGNESIUM HYDROX 2400MG/30ML ORAL SUSPENSION 30 ML CUP PO PRN (14:31)
[2018-10-04] MEDS ORDERED: P-EPHED 60MG/TRIPROLIDI 2.5MG TABLET PO PRN (14:31)
[2018-10-04] MEDS ORDERED: LOPERAMIDE HCL 2 MG CAPSULE PO PRN (14:31)
[2018-10-04] MEDS ORDERED: MENTHOL/PHENOL 1 EACH UD MM PRN (14:31)
[2018-10-04 16:33] LABS: HEMATOCRIT 38.5 % (32.4-45.2); HEMOGLOBIN 13.1 GM/dL (10.7-15.3); MCHC 34.1 g/dl (32.0-36.0); MEAN CELL VOLUME 90.9 fl (80-96); MEAN PLT VOLUME 9.9 fl (7.5-11.1); PLATELET COUNT 302 K/MM3 (134-434); RBC 4.23 M/mm3 (3.60-5.2); RDW 13.6 % (11.6-15.6); WHITE BLOOD COUNT 7.6 K/mm3 (4.0-10.0)
[2018-10-04 16:43] LABS: BILIRUBIN,TOTAL 0.2 mg/dL (0.2-1); BLOOD UREA NITROGEN 14.1 mg/dL (7-18); CALCIUM 9.3 mg/dL (8.5-10.1); CREATININE 0.7 mg/dL (0.55-1.3); POTASSIUM 4.1 mmol/L (3.5-5.1); TOT PROT 7.7 g/dl (6.4-8.2)
[2018-10-04] MEDS: NICOTINE 14 MG/24 HOURS TOPICAL PATCH TD SCH (17:16)
[2018-10-04] MEDS: MELATONIN 5 MG TABLETS PO PRN (21:53)
[2018-10-04] MEDS: THIAMINE HCL 100 MG TABLET (FP) PO SCH (21:53)
[2018-10-05] MEDS: PRENATAL VITAMINS W/ FOLIC ACID TABLET (FP) PO SCH (09:47)
[2018-10-05] MEDS: NICOTINE 14 MG/24 HOURS TOPICAL PATCH TD SCH (09:47)
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
--- NOTE | 2018-10-05 18:23 | PN ---
[facility] Progress Note Note: Psychiatric nurse practitioner note: Met with patient briefly concerning psychotropic medications. She reports taking five different psychotropic medications but only recalls taking seroquel 100mg. External records show a 30 day prescription of seroquel 100mg BID on 09/26. [facility] pharmacy contacted and able to speak to pharmacist. As per pharmacist patient has received various prescriptions in 2018 for risperdal 1mg, 2mg, and 0.5mg. She also received a prescription of depakote 500mg BID in 2018. Pharmacist stated that patient has only received seroquel 100mg BID this year. [employer] will attempt to obtain information on additional medications tomorrow. Psychiatric consultation also to be completed tomorrow. Will order Seroquel 100mg BID. Benefits and side effects discussed. Verbal consent given.
[2018-10-05] MEDS: THIAMINE HCL 100 MG TABLET (FP) PO SCH (21:46)
[2018-10-05] MEDS: MELATONIN 5 MG TABLETS PO PRN (21:46)
[2018-10-05] MEDS: QUEtiapine FUMARATE 100 MG TABLET (FP) PO SCH (21:47)
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
[2018-10-06] MEDS: metroNIDAZOLE 250 MG TABLET PO SCH ×2 (09:50→21:24)
[2018-10-06] MEDS: QUEtiapine FUMARATE 100 MG TABLET (FP) PO SCH (09:50)
[2018-10-06] MEDS: NICOTINE 14 MG/24 HOURS TOPICAL PATCH TD SCH (09:50)
[2018-10-06] MEDS: PRENATAL VITAMINS W/ FOLIC ACID TABLET (FP) PO SCH (09:50)
[2018-10-06] MEDS: NICOTINE POLACRILEX 2 MG GUM BUC PRN (09:51)
[2018-10-06] MEDS ORDERED: risperiDONE 0.5 MG TABLET (FP) PO ONE (16:45)
--- NOTE | 2018-10-06 16:45 | PN ---
Psychiatric Progress Note Vital Signs: Vital Signs Period Temp Pulse Resp BP Sys/Clay Pulse Ox Last 24 Hr 97.4 F 73 18 101/63 Date of Session: 10/06/18 Chief Complaint:: Asked to be seen nurse due to patient reporting feeling depressed. HPI: Patient admitted to for alcohol and cocaine dependence. Patient reports feeling depressed and irritable. ROS: Patient is coherent, alert and oriented x3. Patient is also highly irritable and anxious. Current Medications: Active Medications Generic Name Dose Route Start Last Admin Trade Name Freq PRN Reason Stop Dose Admin Acetaminophen 650 mg 10/04/18 14:31 Tylenol - PO Q4H PRN FEVER Al Hydroxide/Mg Hydroxide 30 ml 10/04/18 14:31 Mylanta Oral Suspension - PO Q6H PRN DYSPEPSIA Eucalyptus/Menthol/Phenol/Sorbitol 1 each 10/04/18 14:31 Cepastat Lozenge - MM Q4H PRN SORE THROAT Guaifenesin 10 ml 10/04/18 14:31 Robitussin - PO Q6H PRN COUGH Hydroxyzine Pamoate 50 mg 10/06/18 16:34 Vistaril - PO Q4H PRN AGITATION Ibuprofen 400 mg 10/04/18 14:31 Motrin - PO Q6H PRN Pain level 4-6 Loperamide HCl 4 mg 10/04/18 14:31 Imodium - PO Q6H PRN DIARRHEA Magnesium Citrate 300 ml 10/04/18 14:31 Citroma - PO Q48H PRN CONSTIPATION Magnesium Hydroxide 30 ml 10/04/18 14:31 Milk Of Magnesia - PO DAILY PRN CONSTIPATION Melatonin 5 mg 10/04/18 22:00 10/05/18 21:46 Melatonin PO 5 mg HS PRN Administration INSOMNIA Metronidazole 500 mg 10/06/18 10:00 10/06/18 09:50 Flagyl - PO 10/12/18 22:01 500 mg BID ADRIANA Administration Nicotine 14 mg 10/04/18 16:00 10/06/18 09:50 Nicoderm Patch - TD 14 mg DAILY ADRIANA Administration Nicotine Polacrilex 2 mg 10/05/18 10:12 10/06/18 09:51 Nicorette Gum - BUC 2 mg Q2H PRN Administration NICOTINE REPLACEMENT RX Multivit/Folic Acid/Iron 1 tab 10/05/18 10:00 10/06/18 09:50 Vitamins (Sjr) - PO 1 tab DAILY ADRIANA Administration Pseudoephedrine/Triprolidine 1 combo 10/04/18 14:31 Actifed - PO TID PRN NASAL CONGESTION Risperidone 0.5 mg 10/06/18 16:45 Risperdal - PO 10/06/18 16:46 ONCE ONE Risperidone 1 mg 10/06/18 22:00 Risperdal - PO BID ADRIANA Thiamine HCl 100 mg 10/04/18 22:00 10/05/18 21:46 Vitamin B1 - PO 100 mg HS ADRIANA Administration Medication(s) Change(s): Yes. Current Side Effect: No Lab tests ordered: No Lab tests reviewed: Yes Provider note:: Psychiatric consultation ordered after patient reported feeling depressed, having restless legs, and wanting to bang her head against something. Dr. Murray's note read and appreciated. Patient seen briefly by radio news writer yesterday afternoon and was restarted on seroquel 100mg BID after reviewing external records. Patient did notify radio news writer yesterday that seroquel has been causing her to have restless legs which causes her to discontinue medications. Upon approach patient presented as sad and highly irritable. States she is not on the correct medications and her mood is depressed and sad. She also reports feeling uncomfortable because the seroquel dose is causing her to feel a tingling sensation in addition to experiencing restless legs. States she does not want to take seroquel any longer as it is making her uncomfortable. Stated to radio news writer that before coming to rehab she took one dose of seroquel. She received a prescription of seroquel on 09/23/18 for 100mg BID from [facility] after complaining of severe anxiety. Patient became highly upset while discussing her medications and walked out of the office but was able to return and speak to radio news writer due to nursing support. Patient requested radio news writer call her Mr. Eddie Genao in order to obtain information on her medications. Call was made in patient's presence but did not answer phone call. Ms. Savage reports medication noncompliance for many months because of her drug binge. She admits to taking seroquel 400mg in the past. Stated that during that time the medication was effective in treating her mood and h/o auditory hallucinations but now she is unable to tolerate seroquel even at small doses because it causes her to have restless legs. Patient has been on risperdal in the past (medications confirmed by calling patient's pharmacy, [facility] pharmacy [phone] on 10/05/18. Has been prescribed risperdal 2mg, 1mg + 0.5mg in 2018.) [facility] Pharm[facility] located at [address] [place] [address] # called as per patient's request in hopes to obtain additional information on patient's medications. Log Buncher able to speak to pharmacist. As per pharmacist patient has never had a prescription of psychotropic medications in the past. Patient requesting a switch from seroquel to risperdal. She denies experiencing restless legs from accepting risperdal. Patient denies auditory/ visual hallucinations. She reports feeling frustrated and irritable but denies thoughts or urges to hurt self or others. She reports past diagnosis of schizophrenia and bipolar disorder. Will d/c seroquel 100mg BID. Will order one time dose of risperdal 0.5mg for irritability + risperdal 1mg BID + Vistaril 50mg q4h for agitation + Trazodone 50mg HS. Patient does not require 1:1 at this time. Total face to face time:: 40 Mental Status Exam - Mental Status Exam Alert and Oriented to: Time, Place, Person Cognitive Function: Good Patient Appearance: Well Groomed Mood: Anxious, Irritable Affect: Mood Congruent Patient Behavior: Agitated (agitated at first but able to cooperate with radio news writer. ) Speech Pattern: Clear Voice Loudness: Normal Thought Process: Goal Oriented Thought Disorder: Not Present Hallucinations: Denies Suicidal Ideation: Denies Homicidal Ideation: Denies Insight/Judgement: Poor Sleep: Poorly Appetite: Fair Muscle strength/Tone: Normal Gait/Station: Normal Psychiatric Treatment Plan - Problem List (1) Mood disorder Current Visit: Yes (2) Alcohol dependence Current Visit: Yes (3) Cocaine dependence Current Visit: Yes (4) Substance induced mood disorder Current Visit: Yes (5) Substance-induced sleep disorder Current Visit: Yes (6) PTSD (post-traumatic stress disorder) Current Visit: Yes (7) Schizoaffective disorder Current Visit: Yes Comment: Suspected diagnosis of schizoaffective disorder
[2018-10-06] MEDS: hydrOXYzine PAMOATE 50 MG CAPSULE (FP) PO PRN ×2 (17:02→21:24)
[2018-10-06] MEDS ORDERED: PT OWN MED DRAWER 7, Y5N ONE (21:08)
[2018-10-06] MEDS: THIAMINE HCL 100 MG TABLET (FP) PO SCH (21:23)
[2018-10-06] MEDS: traZODone HCL 50 MG TABLET (FP) PO SCH (21:24)
[2018-10-06] MEDS: risperiDONE 1 MG TABLET (FP) PO SCH (21:25)
[2018-10-06 23:58] LABS: PH,URINE 5.5 (5.0-8.0); URINE APPEARANCE CLEAR; URINE BILIRUBIN NEGATIVE (NEGATIVE); URINE COLOR YELLOW; URINE GLUCOSE (UA) NEGATIVE (NEGATIVE); URINE KETONE NEGATIVE (NEGATIVE); URINE LEUK ESTERASE NEGATIVE (NEGATIVE); URINE NITRITE NEGATIVE (NEGATIVE); URINE PROTEIN NEGATIVE (NEGATIVE); URINE UROBILINOGEN 0.2 mg/dL (0.2-1.0)
[2018-10-07] MEDS: NICOTINE 14 MG/24 HOURS TOPICAL PATCH TD SCH (09:52)
[2018-10-07] MEDS: PRENATAL VITAMINS W/ FOLIC ACID TABLET (FP) PO SCH (09:53)
[2018-10-07] MEDS: risperiDONE 1 MG TABLET (FP) PO SCH ×2 (09:53→21:21)
[2018-10-07] MEDS: metroNIDAZOLE 250 MG TABLET PO SCH ×2 (09:53→21:21)
[2018-10-07] MEDS: hydrOXYzine PAMOATE 50 MG CAPSULE (FP) PO PRN ×2 (09:54→21:22)
[2018-10-07] MEDS: traZODone HCL 50 MG TABLET (FP) PO SCH (21:21)
[2018-10-07] MEDS: MELATONIN 5 MG TABLETS PO PRN (21:21)
[2018-10-07] MEDS: THIAMINE HCL 100 MG TABLET (FP) PO SCH (21:21)
[2018-10-08] MEDS: metroNIDAZOLE 250 MG TABLET PO SCH ×2 (09:29→21:04)
[2018-10-08] MEDS: risperiDONE 1 MG TABLET (FP) PO SCH ×2 (09:29→21:04)
[2018-10-08] MEDS: PRENATAL VITAMINS W/ FOLIC ACID TABLET (FP) PO SCH (09:29)
[2018-10-08] MEDS: NICOTINE 14 MG/24 HOURS TOPICAL PATCH TD SCH (09:29)
[2018-10-08] MEDS: MAG HYDROX/AL HYDROX/SIMETH 30 ML UNIT-DOSE CUP PO PRN (16:33)
[2018-10-08] MEDS: THIAMINE HCL 100 MG TABLET (FP) PO SCH (21:04)
[2018-10-08] MEDS: traZODone HCL 50 MG TABLET (FP) PO SCH (21:04)
[2018-10-08] MEDS: MELATONIN 5 MG TABLETS PO PRN (21:05)
[2018-10-08] MEDS: hydrOXYzine PAMOATE 50 MG CAPSULE (FP) PO PRN (21:05)
[2018-10-09] MEDS: PRENATAL VITAMINS W/ FOLIC ACID TABLET (FP) PO SCH (09:31)
[2018-10-09] MEDS: NICOTINE 14 MG/24 HOURS TOPICAL PATCH TD SCH (09:31)
[2018-10-09] MEDS: metroNIDAZOLE 250 MG TABLET PO SCH ×2 (09:31→21:32)
[2018-10-09] MEDS: risperiDONE 1 MG TABLET (FP) PO SCH ×2 (10:14→21:32)
[2018-10-09] MEDS ORDERED: PT OWN MED DRAWER 7, Y5N ONE (18:50)
[2018-10-09] MEDS: THIAMINE HCL 100 MG TABLET (FP) PO SCH (21:32)
[2018-10-09] MEDS: traZODone HCL 50 MG TABLET (FP) PO SCH (21:32)
[2018-10-09] MEDS: hydrOXYzine PAMOATE 50 MG CAPSULE (FP) PO PRN (21:34)
[2018-10-09] MEDS: MELATONIN 5 MG TABLETS PO PRN (21:34)
[2018-10-10] MEDS: metroNIDAZOLE 250 MG TABLET PO SCH ×2 (09:42→21:47)
[2018-10-10] MEDS: PRENATAL VITAMINS W/ FOLIC ACID TABLET (FP) PO SCH (09:42)
[2018-10-10] MEDS: NICOTINE 14 MG/24 HOURS TOPICAL PATCH TD SCH (09:42)
[2018-10-10] MEDS: hydrOXYzine PAMOATE 50 MG CAPSULE (FP) PO PRN ×2 (09:43→21:47)
[2018-10-10] MEDS: risperiDONE 1 MG TABLET (FP) PO SCH ×2 (10:43→21:47)
[2018-10-10] MEDS: NICOTINE POLACRILEX 2 MG GUM BUC PRN (13:07)
[2018-10-10] MEDS: THIAMINE HCL 100 MG TABLET (FP) PO SCH (21:47)
[2018-10-10] MEDS: traZODone HCL 50 MG TABLET (FP) PO SCH (21:47)
[2018-10-11] MEDS: metroNIDAZOLE 250 MG TABLET PO SCH ×2 (09:38→21:40)
[2018-10-11] MEDS: PRENATAL VITAMINS W/ FOLIC ACID TABLET (FP) PO SCH (09:39)
[2018-10-11] MEDS: NICOTINE 14 MG/24 HOURS TOPICAL PATCH TD SCH (09:39)
[2018-10-11] MEDS: risperiDONE 1 MG TABLET (FP) PO SCH ×2 (09:39→21:40)
[2018-10-11] MEDS: THIAMINE HCL 100 MG TABLET (FP) PO SCH (21:40)
[2018-10-11] MEDS: MELATONIN 5 MG TABLETS PO PRN (21:40)
[2018-10-11] MEDS: traZODone HCL 50 MG TABLET (FP) PO SCH (21:40)
[2018-10-12] MEDS: metroNIDAZOLE 250 MG TABLET PO SCH ×2 (09:58→21:17)
[2018-10-12] MEDS: PRENATAL VITAMINS W/ FOLIC ACID TABLET (FP) PO SCH (09:58)
[2018-10-12] MEDS: risperiDONE 1 MG TABLET (FP) PO SCH ×2 (09:58→21:16)
[2018-10-12] MEDS: NICOTINE 14 MG/24 HOURS TOPICAL PATCH TD SCH (09:58)
[2018-10-12] MEDS: hydrOXYzine PAMOATE 50 MG CAPSULE (FP) PO PRN (21:16)
[2018-10-12] MEDS: traZODone HCL 50 MG TABLET (FP) PO SCH (21:16)
[2018-10-12] MEDS: THIAMINE HCL 100 MG TABLET (FP) PO SCH (21:16)
[2018-10-12] MEDS: MELATONIN 5 MG TABLETS PO PRN (21:17)
[2018-10-12] MEDS: NICOTINE POLACRILEX 2 MG GUM BUC PRN (21:18)
[2018-10-13] MEDS: PRENATAL VITAMINS W/ FOLIC ACID TABLET (FP) PO SCH (09:29)
[2018-10-13] MEDS: NICOTINE 14 MG/24 HOURS TOPICAL PATCH TD SCH (09:29)
[2018-10-13] MEDS: risperiDONE 1 MG TABLET (FP) PO SCH ×2 (09:30→21:13)
[2018-10-13] MEDS: IBUPROFEN 400 MG TABLET (FP) PO PRN (11:19)
[2018-10-13] MEDS: hydrOXYzine PAMOATE 50 MG CAPSULE (FP) PO PRN (21:13)
[2018-10-13] MEDS: THIAMINE HCL 100 MG TABLET (FP) PO SCH (21:13)
[2018-10-13] MEDS: traZODone HCL 50 MG TABLET (FP) PO SCH (21:14)
[2018-10-14] MEDS ORDERED: PT OWN MED DRAWER 7, Y5N ONE (08:30)
[2018-10-14] MEDS: NICOTINE 14 MG/24 HOURS TOPICAL PATCH TD SCH (09:39)
[2018-10-14] MEDS: PRENATAL VITAMINS W/ FOLIC ACID TABLET (FP) PO SCH (09:39)
[2018-10-14] MEDS: risperiDONE 1 MG TABLET (FP) PO SCH ×2 (09:40→21:53)
[2018-10-14] MEDS: traZODone HCL 50 MG TABLET (FP) PO SCH (21:53)
[2018-10-14] MEDS: THIAMINE HCL 100 MG TABLET (FP) PO SCH (21:53)
[2018-10-14] MEDS: hydrOXYzine PAMOATE 50 MG CAPSULE (FP) PO PRN (21:53)
[2018-10-14] MEDS: IBUPROFEN 400 MG TABLET (FP) PO PRN (21:55)
[2018-10-15] MEDS: MAG HYDROX/AL HYDROX/SIMETH 30 ML UNIT-DOSE CUP PO PRN (01:13)
[2018-10-15] MEDS: NICOTINE 14 MG/24 HOURS TOPICAL PATCH TD SCH (10:14)
[2018-10-15] MEDS: risperiDONE 1 MG TABLET (FP) PO SCH ×2 (10:14→21:24)
[2018-10-15] MEDS: PRENATAL VITAMINS W/ FOLIC ACID TABLET (FP) PO SCH (10:14)
[2018-10-15] MEDS: IBUPROFEN 400 MG TABLET (FP) PO PRN ×2 (10:15→21:23)
[2018-10-15] MEDS: MELATONIN 5 MG TABLETS PO PRN (21:22)
[2018-10-15] MEDS: THIAMINE HCL 100 MG TABLET (FP) PO SCH (21:22)
[2018-10-15] MEDS: traZODone HCL 50 MG TABLET (FP) PO SCH (21:24)
[2018-10-16] MEDS: NICOTINE 14 MG/24 HOURS TOPICAL PATCH TD SCH (09:43)
[2018-10-16] MEDS: PRENATAL VITAMINS W/ FOLIC ACID TABLET (FP) PO SCH (09:43)
[2018-10-16] MEDS: risperiDONE 1 MG TABLET (FP) PO SCH ×2 (09:44→21:40)
[2018-10-16] MEDS: THIAMINE HCL 100 MG TABLET (FP) PO SCH (21:39)
[2018-10-16] MEDS: traZODone HCL 50 MG TABLET (FP) PO SCH (21:39)
[2018-10-16] MEDS: MELATONIN 5 MG TABLETS PO PRN (21:39)
[2018-10-17] MEDS ORDERED: PT OWN MED DRAWER 7, Y5N ONE ×2 (02:10→15:46)
[2018-10-17] MEDS: IBUPROFEN 400 MG TABLET (FP) PO PRN (02:10)
[2018-10-17 07:03] VITALS: BP 101/69; PULSE 67; TEMP 97.3
[2018-10-17] MEDS: NICOTINE 14 MG/24 HOURS TOPICAL PATCH TD SCH (09:35)
[2018-10-17] MEDS: PRENATAL VITAMINS W/ FOLIC ACID TABLET (FP) PO SCH (09:36)
[2018-10-17] MEDS: risperiDONE 1 MG TABLET (FP) PO SCH (09:36)
--- NOTE | 2018-10-17 14:56 | PN ---
S Progress Note Note: Rehab discharge note: Patient admitted to rehab on 10/04/18 for ETOH, crack and BZO dependence. Patient scheduled for discharge tomorrow 10/18/18 and aftercare arranged for [facility]. Patient attended group meetings during admission and states she was able to achieve all rehab goals. Patient is medically stable and denies SI/HI. Patient encouraged to continue group meetings to prevent relapse and to follow up with PCP within one week of discharge. ROS: denies headache, SOB, CP and Dizziness. Vital Signs Temperature 97.3 F L 10/17/18 07:02 Pulse Rate 67 10/17/18 07:02 Respiratory Rate 18 10/17/18 07:02 Blood Pressure 101/69 10/17/18 07:02 O2 Sat by Pulse Oximetry (%) Ambulatory Orders Fluoxetine HCl [Prozac -] 40 mg PO DAILY 10/04/18 Quetiapine Fumarate [Seroquel -] 100 mg PO HS 10/04/18 Risperidone [Risperdal -] 1 mg PO BID #60 tablet 10/17/18 traZODone HCL [Desyrel -] 50 mg PO HS #30 tablet 10/17/18 PE: alert and oriented x 3 skin warm and dry +perrla, eoms intact bl neck supple no JVD ext full rom, no edema A/P: ETOH/Crack/BZO dependence Patient stable for discharge
--- NOTE | 2018-10-17 15:11 | PN ---
[facility] Progress Note Note: Patient is scheduled for discharged tomorrow. Scripts for 30 days supply of medications(Risperdal 1 mg/bid, Trazadone 50 mg/hs) will be electronically transmitted to [facility] at [address] [place] [address]
== END 2018-10-17 17:56 | disposition home or self-care (01) | DRG 772 ==
LOC: YASAS 12:04 → Y3E 15:00
PROVIDERS: ADMIT Neuromusculoskeletal Medicine & OMM; ATTEND Neuromusculoskeletal Medicine & OMM
PROC: HZ42ZZZ Group Counseling for Substance Abuse Treatment, Cognitive-Behavioral (ICD-10-PCS; principal; 2018-10-04)
DX: F10.20 Alcohol dependence, uncomplicated (principal); F13.20 Sedative, hypnotic or anxiolytic dependence, uncomplicated; F14.20 Cocaine dependence, uncomplicated; F17.213 Nicotine dependence, cigarettes, with withdrawal; F39 Unspecified mood [affective] disorder; F19.24 Other psychoactive substance dependence with psychoactive substance-induced mood disorder; F19.282 Other psychoactive substance dependence with psychoactive substance-induced sleep disorder; F43.10 Post-traumatic stress disorder, unspecified; F25.9 Schizoaffective disorder, unspecified; F20.9 Schizophrenia, unspecified; R01.1 Cardiac murmur, unspecified; E78.5 Hyperlipidemia, unspecified; M41.9 Scoliosis, unspecified; N76.0 Acute vaginitis; Z91.5 Personal history of self-harm
CPT/HCPCS: 36415; 80053; 81003; 81025; 85027; 86480; 86593; 87389; 87491; 87591; J2794

== ENCOUNTER 2021-12-13 15:01 | Inpatient (IN) | payer OTHER ==
[2021-12-13 16:50] VITALS: BMI 22.8
[2021-12-13] MEDS ORDERED: MAGNESIUM CITRATE 300 ML BOTTLE PO PRN (17:52)
[2021-12-13] MEDS ORDERED: BISMUTH SUBSALICYLATE 524 MG/30 ML PO PRN (17:52)
[2021-12-13] MEDS ORDERED: BENZOCAINE/MENTHOL (CHLORASEPTIC ) LOZENGE MM PRN (17:52)
[2021-12-13] MEDS ORDERED: ONDANSETRON *ODT* 4 MG TABLET SL PRN (17:52)
[2021-12-13] MEDS ORDERED: MAG HYDROX/AL HYDROX/SIMETH 30 ML UNIT-DOSE CUP PO PRN (17:52)
[2021-12-13] MEDS ORDERED: DICYCLOMINE HCL 10 MG CAPSULE PO PRN (17:52)
[2021-12-13] MEDS ORDERED: LOPERAMIDE HCL 2 MG CAPSULE PO PRN (17:52)
[2021-12-13] MEDS ORDERED: NICOTINE 10 MG CARTRIDGE (INHALER) IH PRN (17:52)
[2021-12-13] MEDS ORDERED: chlordiazePOXIDE HCL 25 MG CAPSULE PO PRN (17:52)
[2021-12-13] MEDS ORDERED: MAGNESIUM HYDROX 2400MG/30ML ORAL SUSPENSION 30 ML CUP PO PRN (17:52)
[2021-12-13] MEDS ORDERED: IBUPROFEN 400 MG TABLET (FP) PO PRN (17:52)
[2021-12-13] MEDS ORDERED: IBUPROFEN 600 MG TABLET (FP) PO PRN (17:52)
[2021-12-13] MEDS ORDERED: ACETAMINOPHEN 325 MG TABLET (FP) PO PRN ×2 (17:52)
[2021-12-13] MEDS ORDERED: IBUPROFEN 600 MG TABLET (FP) PO ONE (19:35)
[2021-12-13] MEDS: MELATONIN 5 MG TABLETS PO SCH (22:37)
[2021-12-13] MEDS: THIAMINE HCL 100 MG TABLET (FP) PO SCH (22:37)
[2021-12-13] MEDS: chlordiazePOXIDE HCL 25 MG CAPSULE PO SCH (22:38)
[2021-12-13] MEDS: hydrOXYzine PAMOATE 25 MG CAPSULE (FP) PO PRN (22:38)
[2021-12-13] MEDS: METHOCARBAMOL 500 MG TABLET PO PRN (22:38)
[2021-12-13] MEDS: metroNIDAZOLE 250 MG TABLET PO SCH (23:00)
[2021-12-14] MEDS: chlordiazePOXIDE HCL 25 MG CAPSULE PO SCH ×4 (06:06→23:14)
[2021-12-14] MEDS: METHOCARBAMOL 500 MG TABLET PO PRN ×2 (10:28→18:10)
[2021-12-14] MEDS: metroNIDAZOLE 250 MG TABLET PO SCH ×2 (10:28→23:15)
[2021-12-14] MEDS: PRENATAL VITAMINS W/ FOLIC ACID TABLET (FP) PO SCH (10:28)
[2021-12-14] MEDS ORDERED: FLU VACC QS2022-23(6MOS UP)/PF 60 MCG/0.5 ML SYRINGE IM ONE (11:00)
[2021-12-14 12:22] LABS: HEMOGLOBIN 13.2 GM/dL (10.7-15.3); MCH 29.8 pg (25.7-33.7); MCHC 32.9 g/dl (32.0-36.0); MEAN CELL VOLUME 90.4 fl (80-96); MEAN PLT VOLUME 9.8 fl (7.5-11.1); PLATELET COUNT 249 10^3/uL (134-434); RBC 4.43 M/mm3 (3.60-5.2); RDW 13.6 % (11.6-15.6); WHITE BLOOD COUNT 3.5 K/mm3 (4.0-10.0)
[2021-12-14 12:48] LABS: ALBUMIN 3.4 g/dl (3.4-5.0); BLOOD UREA NITROGEN 11.8 mg/dL (7-18); CALCIUM 8.8 mg/dL (8.5-10.1)
[2021-12-14 12:51] LABS: CREATININE 0.7 mg/dL (0.55-1.3); TOT PROT 6.7 g/dl (6.4-8.2)
[2021-12-14 12:52] LABS: BILIRUBIN,TOTAL 0.3 mg/dL (0.2-1)
[2021-12-14 13:16] LABS: HIV INTERPRETATION NEGATIVE (NEGATIVE)
[2021-12-14] MEDS: hydrOXYzine PAMOATE 25 MG CAPSULE (FP) PO PRN ×2 (18:09→23:15)
[2021-12-14] MEDS: traZODone HCL 50 MG TABLET (FP) PO SCH (23:14)
[2021-12-14] MEDS: MELATONIN 5 MG TABLETS PO SCH (23:14)
[2021-12-14] MEDS: THIAMINE HCL 100 MG TABLET (FP) PO SCH (23:14)
[2021-12-15] MEDS: chlordiazePOXIDE HCL 25 MG CAPSULE PO SCH ×4 (05:46→23:25)
[2021-12-15] MEDS: metroNIDAZOLE 250 MG TABLET PO SCH ×2 (10:56→22:23)
[2021-12-15] MEDS: PRENATAL VITAMINS W/ FOLIC ACID TABLET (FP) PO SCH (10:56)
[2021-12-15] MEDS: traZODone HCL 50 MG TABLET (FP) PO SCH (22:24)
[2021-12-15] MEDS: MELATONIN 5 MG TABLETS PO SCH (22:24)
[2021-12-15] MEDS: THIAMINE HCL 100 MG TABLET (FP) PO SCH (23:24)
[2021-12-16] MEDS ORDERED: chlordiazePOXIDE HCL 10 MG CAPSULE PO PRN
[2021-12-16] MEDS: chlordiazePOXIDE HCL 10 MG CAPSULE PO SCH ×2 (05:36→10:22)
[2021-12-16] MEDS: PRENATAL VITAMINS W/ FOLIC ACID TABLET (FP) PO SCH (10:21)
[2021-12-16] MEDS: metroNIDAZOLE 250 MG TABLET PO SCH ×2 (10:21→22:29)
[2021-12-16] MEDS: chlordiazePOXIDE 5 MG CAPSULE PO SCH ×2 (18:55→23:42)
[2021-12-16] MEDS: THIAMINE HCL 100 MG TABLET (FP) PO SCH (22:29)
[2021-12-16] MEDS: MELATONIN 5 MG TABLETS PO SCH (22:30)
[2021-12-16] MEDS: traZODone HCL 50 MG TABLET (FP) PO SCH (23:33)
[2021-12-17] MEDS: chlordiazePOXIDE HCL 10 MG CAPSULE PO SCH ×2 (05:23→17:33)
[2021-12-17] MEDS: metroNIDAZOLE 250 MG TABLET PO SCH ×2 (10:38→22:48)
[2021-12-17] MEDS: PRENATAL VITAMINS W/ FOLIC ACID TABLET (FP) PO SCH (10:38)
[2021-12-17] MEDS: MELATONIN 5 MG TABLETS PO SCH ×2 (22:47→22:51)
[2021-12-17] MEDS: THIAMINE HCL 100 MG TABLET (FP) PO SCH (22:48)
[2021-12-17] MEDS: traZODone HCL 50 MG TABLET (FP) PO SCH (22:48)
[2021-12-17 22:59] VITALS: RESP 16
[2021-12-18] MEDS ORDERED: chlordiazePOXIDE HCL 10 MG CAPSULE PO ONE (05:00)
[2021-12-18 06:37] VITALS: BP 106/66; PULSE 92; TEMP 97.1
== END 2021-12-18 09:00 | disposition home or self-care (01) | DRG 774 ==
LOC: YASAS 15:01 → Y6N 18:07
PROVIDERS: ADMIT Allergy & Immunology; ATTEND Surgery
PROC: HZ2ZZZZ Detoxification Services for Substance Abuse Treatment (ICD-10-PCS; principal; 2021-12-13)
DX: F10.230 Alcohol dependence with withdrawal, uncomplicated (principal); F14.20 Cocaine dependence, uncomplicated; F12.20 Cannabis dependence, uncomplicated; F17.210 Nicotine dependence, cigarettes, uncomplicated; F25.1 Schizoaffective disorder, depressive type; F19.282 Other psychoactive substance dependence with psychoactive substance-induced sleep disorder; F19.24 Other psychoactive substance dependence with psychoactive substance-induced mood disorder; F43.10 Post-traumatic stress disorder, unspecified; B18.2 Chronic viral hepatitis C; N76.0 Acute vaginitis; B96.89 Other specified bacterial agents as the cause of diseases classified elsewhere; R26.81 Unsteadiness on feet; R42 Dizziness and giddiness; R51.9 Headache, unspecified; Z62.810 Personal history of physical and sexual abuse in childhood
CPT/HCPCS: 36415; 80053; 85027; 86780; 87389; 93005; 93010; C9803-CS; G0008; Q2036; U0003; U0005

== ENCOUNTER 2021-12-17 12:09 | Emergency (ER) | payer OTHER ==
[2021-12-17 12:44] VITALS: BMI 22.0
[2021-12-17] MEDS ORDERED: SODIUM CHLORIDE 1,000 ML IV STA (14:18)
[2021-12-17] MEDS ORDERED: MECLIZINE HCL 25 MG TABLET (FP) PO ONE ×2 (15:07→17:01)
[2021-12-17 15:09] LABS: BASO % 0.4 % (0-2.0); EOS % 5.4 % (0-4.5); HEMOGLOBIN 13.4 GM/dL (10.7-15.3); LYMPH % 47.3 % (8-40); MCH 30.2 pg (25.7-33.7); MCHC 33.4 g/dl (32.0-36.0); MEAN CELL VOLUME 90.4 fl (80-96); MEAN PLT VOLUME 8.8 fl (7.5-11.1); MONO % 10.7 % (3.8-10.2); NEUT % 36.2 % (42.8-82.8); PLATELET COUNT 260 10^3/uL (134-434); RBC 4.43 M/mm3 (3.60-5.2); RDW 13.5 % (11.6-15.6); WHITE BLOOD COUNT 4.5 K/mm3 (4.0-10.0)
[2021-12-17 15:19] LABS: INR 0.92 (0.83-1.09); PROTHROMBIN TIME (PATIENT) 10.6 SEC (9.7-13.0)
[2021-12-17] MEDS ORDERED: MECLIZINE HCL 25 MG TABLET (FP) ONE ×2 (15:22→19:14)
[2021-12-17 15:27] LABS: CHLORIDE 104 mmol/L (98-107); SODIUM 139 mmol/L (136-145)
[2021-12-17 15:29] LABS: CALCIUM 9.1 mg/dL (8.5-10.1)
[2021-12-17 15:30] LABS: ALBUMIN 3.4 g/dl (3.4-5.0); ANION GAP 6 MMOL/L (8-16); BLOOD UREA NITROGEN 14.3 mg/dL (7-18); CO2 29 mmol/L (21-32); GLUCOSE,RANDOM 123 mg/dL (74-106)
[2021-12-17 15:33] LABS: CREATININE 0.8 mg/dL (0.55-1.3); SGOT/AST 12 U/L (15-37); SGPT/ALT 15 U/L (13-61)
[2021-12-17 15:35] LABS: BILIRUBIN,TOTAL 0.2 mg/dL (0.2-1); TOT PROT 6.6 g/dl (6.4-8.2)
[2021-12-17 15:36] LABS: ALK PHOS 93 U/L (45-117)
[2021-12-17 16:42] LABS: URINE APPEARANCE CLEAR; URINE BILIRUBIN NEGATIVE (NEGATIVE); URINE COLOR YELLOW; URINE GLUCOSE (UA) NEGATIVE (NEGATIVE); URINE KETONE NEGATIVE (NEGATIVE); URINE LEUK ESTERASE NEGATIVE (NEGATIVE); URINE NITRITE NEGATIVE (NEGATIVE); URINE PROTEIN NEGATIVE (NEGATIVE); URINE UROBILINOGEN 0.2 mg/dL (0.2-1.0)
[2021-12-17 19:21] VITALS: BP 100/69; PULSE 60; RESP 19
== END 2021-12-17 19:25 | disposition home or self-care (01) ==
LOC: JER 12:09
PROC: 3E0337Z Introduction of Electrolytic and Water Balance Substance into Peripheral Vein, Percutaneous Approach (ICD-10-PCS; principal; 2021-12-17)
DX: R42 Dizziness and giddiness (principal); R51.9 Headache, unspecified
CPT/HCPCS: 0241U-QW; 36415; 71045-TC-FY; 80053; 81003; 84443; 84484; 85025; 85610; 85730; 87086; 93005; 93010; 99285-25

== ENCOUNTER 2022-03-30 11:23 | Inpatient (IN) | payer OTHER ==
[2022-03-30 11:50] VITALS: BMI 20.2
[2022-03-30] MEDS ORDERED: LOPERAMIDE HCL 2 MG CAPSULE PO PRN (12:29)
[2022-03-30] MEDS ORDERED: BENZOCAINE/MENTHOL (CHLORASEPTIC ) LOZENGE MM PRN (12:29)
[2022-03-30] MEDS ORDERED: POLYETHYLENE GLYCOL (HEALTHYLAX) 3350 17 GM PACKET PO PRN (12:29)
[2022-03-30] MEDS ORDERED: MAG HYDROX/AL HYDROX/SIMETH 30 ML UNIT-DOSE CUP PO PRN (12:29)
[2022-03-30] MEDS ORDERED: NICOTINE POLACRILEX 2 MG GUM BC PRN (12:29)
[2022-03-30] MEDS ORDERED: guaiFENesin 200 MG/10 ML 10 ML UNIT-DOSE CUPS PO PRN (12:29)
[2022-03-30] MEDS ORDERED: P-EPHED 60MG/TRIPROLIDI 2.5MG TABLET PO PRN (12:29)
[2022-03-30] MEDS: PRENATAL VITAMINS W/ FOLIC ACID TABLET (FP) PO SCH ×2 (12:30→15:34)
[2022-03-30] MEDS: hydrOXYzine PAMOATE 25 MG CAPSULE (FP) PO PRN ×2 (15:32→21:45)
[2022-03-30] MEDS: ACETAMINOPHEN 325 MG TABLET (FP) PO PRN (15:32)
[2022-03-30] MEDS: THIAMINE HCL 100 MG TABLET (FP) PO SCH (21:45)
[2022-03-30] MEDS: MELATONIN 5 MG TABLETS PO SCH (21:45)
[2022-03-31] MEDS: PRENATAL VITAMINS W/ FOLIC ACID TABLET (FP) PO SCH (10:14)
[2022-03-31] MEDS: ACETAMINOPHEN 325 MG TABLET (FP) PO PRN (10:14)
[2022-03-31] MEDS: hydrOXYzine PAMOATE 25 MG CAPSULE (FP) PO PRN (10:14)
[2022-03-31 11:36] LABS: HEMATOCRIT 36.4 % (32.4-45.2); HEMOGLOBIN 12.6 GM/dL (10.7-15.3); MCH 30.8 pg (25.7-33.7); MCHC 34.5 g/dl (32.0-36.0); MEAN CELL VOLUME 89.3 fl (80-96); MEAN PLT VOLUME 8.9 fl (7.5-11.1); PLATELET COUNT 292 10^3/uL (134-434); RBC 4.08 M/mm3 (3.60-5.2); RDW 13.1 % (11.6-15.6); WHITE BLOOD COUNT 4.2 K/mm3 (4.0-10.0)
[2022-03-31 11:49] LABS: CALCIUM 8.9 mg/dL (8.5-10.1)
[2022-03-31 11:50] LABS: ALBUMIN 3.6 g/dl (3.4-5.0)
[2022-03-31 11:53] LABS: CREATININE 0.8 mg/dL (0.55-1.3)
[2022-03-31 11:55] LABS: BILIRUBIN,TOTAL 0.3 mg/dL (0.2-1); TOT PROT 6.8 g/dl (6.4-8.2)
[2022-03-31 11:58] LABS: SYPHILIS W/ RPR CONF NON-REACTIVE (NONREACTIVE)
[2022-03-31] MEDS: DIVALPROEX SODIUM 250 MG TABLET E.C. PO SCH ×2 (11:58→21:28)
[2022-03-31] MEDS: MAGNESIUM HYDROX 2400MG/30ML ORAL SUSPENSION 30 ML CUP PO PRN (11:58)
[2022-03-31] MEDS: IBUPROFEN 400 MG TABLET (FP) PO PRN (11:58)
[2022-03-31] MEDS: ARIPiprazole 5 MG TABLET PO SCH (11:58)
[2022-03-31] MEDS: traZODone HCL 100 MG TABLET (FP) PO SCH (21:28)
[2022-03-31] MEDS: valACYclovir HCL 500 MG TABLET (FP) PO SCH (21:28)
[2022-03-31] MEDS: THIAMINE HCL 100 MG TABLET (FP) PO SCH (21:28)
[2022-03-31] MEDS: MELATONIN 5 MG TABLETS PO SCH (21:29)
[2022-04-01] MEDS: IBUPROFEN 400 MG TABLET (FP) PO PRN ×3 (06:53→21:20)
[2022-04-01] MEDS: ARIPiprazole 5 MG TABLET PO SCH (09:47)
[2022-04-01] MEDS: PRENATAL VITAMINS W/ FOLIC ACID TABLET (FP) PO SCH (09:47)
[2022-04-01] MEDS: valACYclovir HCL 500 MG TABLET (FP) PO SCH ×2 (09:47→21:17)
[2022-04-01] MEDS: ACETAMINOPHEN 325 MG TABLET (FP) PO PRN ×2 (09:48→20:00)
[2022-04-01] MEDS: DIVALPROEX SODIUM 250 MG TABLET E.C. PO SCH ×2 (09:48→21:17)
[2022-04-01 11:13] LABS: URINE APPEARANCE CLEAR; URINE BILIRUBIN NEGATIVE (NEGATIVE); URINE COLOR YELLOW; URINE GLUCOSE (UA) NEGATIVE (NEGATIVE); URINE KETONE NEGATIVE (NEGATIVE); URINE LEUK ESTERASE NEGATIVE (NEGATIVE); URINE NITRITE NEGATIVE (NEGATIVE); URINE PROTEIN NEGATIVE (NEGATIVE); URINE UROBILINOGEN 0.2 mg/dL (0.2-1.0)
[2022-04-01] MEDS: MAGNESIUM HYDROX 2400MG/30ML ORAL SUSPENSION 30 ML CUP PO PRN (14:14)
[2022-04-01] MEDS: THIAMINE HCL 100 MG TABLET (FP) PO SCH (21:17)
[2022-04-01] MEDS: traZODone HCL 100 MG TABLET (FP) PO SCH (21:17)
[2022-04-01] MEDS: MELATONIN 5 MG TABLETS PO SCH (21:17)
[2022-04-01] MEDS: hydrOXYzine PAMOATE 25 MG CAPSULE (FP) PO PRN (21:18)
[2022-04-02] MEDS: DIVALPROEX SODIUM 250 MG TABLET E.C. PO SCH ×2 (09:41→21:39)
[2022-04-02] MEDS: valACYclovir HCL 500 MG TABLET (FP) PO SCH ×2 (09:41→21:39)
[2022-04-02] MEDS: PRENATAL VITAMINS W/ FOLIC ACID TABLET (FP) PO SCH (09:41)
[2022-04-02] MEDS: ACETAMINOPHEN 325 MG TABLET (FP) PO PRN (09:42)
[2022-04-02] MEDS: ARIPiprazole 5 MG TABLET PO SCH (09:42)
[2022-04-02] MEDS: NICOTINE 10 MG CARTRIDGE (INHALER) IH PRN (09:45)
[2022-04-02] MEDS ORDERED: LIDOCAINE 5% TOPICAL PATCH TP ONE (15:42)
[2022-04-02] MEDS: IBUPROFEN 400 MG TABLET (FP) PO PRN (15:53)
[2022-04-02] MEDS: hydrOXYzine PAMOATE 25 MG CAPSULE (FP) PO PRN ×2 (15:53→21:39)
[2022-04-02] MEDS: MELATONIN 5 MG TABLETS PO SCH (21:39)
[2022-04-02] MEDS: traZODone HCL 100 MG TABLET (FP) PO SCH (21:39)
[2022-04-02] MEDS: LIDOCAINE PATCH REMOVAL MC SCH ×2 (21:39→21:40)
[2022-04-02] MEDS: THIAMINE HCL 100 MG TABLET (FP) PO SCH (21:39)
[2022-04-03] MEDS: PRENATAL VITAMINS W/ FOLIC ACID TABLET (FP) PO SCH (10:24)
[2022-04-03] MEDS: LIDOCAINE 5% TOPICAL PATCH TP SCH (10:24)
[2022-04-03] MEDS: valACYclovir HCL 500 MG TABLET (FP) PO SCH ×2 (10:25→21:25)
[2022-04-03] MEDS: DIVALPROEX SODIUM 250 MG TABLET E.C. PO SCH ×2 (10:25→21:25)
[2022-04-03] MEDS: ARIPiprazole 5 MG TABLET PO SCH (10:25)
[2022-04-03] MEDS: LIDOCAINE PATCH REMOVAL MC SCH ×2 (21:25)
[2022-04-03] MEDS: traZODone HCL 100 MG TABLET (FP) PO SCH (21:25)
[2022-04-03] MEDS: MELATONIN 5 MG TABLETS PO SCH (21:25)
[2022-04-03] MEDS: THIAMINE HCL 100 MG TABLET (FP) PO SCH (21:26)
[2022-04-04] MEDS: DIVALPROEX SODIUM 250 MG TABLET E.C. PO SCH ×2 (10:07→21:44)
[2022-04-04] MEDS: IBUPROFEN 400 MG TABLET (FP) PO PRN (10:07)
[2022-04-04] MEDS: ARIPiprazole 5 MG TABLET PO SCH (10:07)
[2022-04-04] MEDS: PRENATAL VITAMINS W/ FOLIC ACID TABLET (FP) PO SCH (10:07)
[2022-04-04] MEDS: LIDOCAINE 5% TOPICAL PATCH TP SCH (10:09)
[2022-04-04] MEDS: NICOTINE 10 MG CARTRIDGE (INHALER) IH PRN (10:34)
[2022-04-04] MEDS: LIDOCAINE PATCH REMOVAL MC SCH ×2 (21:43→21:44)
[2022-04-04] MEDS: THIAMINE HCL 100 MG TABLET (FP) PO SCH (21:44)
[2022-04-04] MEDS: MELATONIN 5 MG TABLETS PO SCH (21:44)
[2022-04-04] MEDS: traZODone HCL 100 MG TABLET (FP) PO SCH (21:44)
[2022-04-05] MEDS: ARIPiprazole 5 MG TABLET PO SCH (10:04)
[2022-04-05] MEDS: PRENATAL VITAMINS W/ FOLIC ACID TABLET (FP) PO SCH (10:04)
[2022-04-05] MEDS: DIVALPROEX SODIUM 250 MG TABLET E.C. PO SCH ×2 (10:04→22:34)
[2022-04-05] MEDS: IBUPROFEN 400 MG TABLET (FP) PO PRN (10:05)
[2022-04-05] MEDS: hydrOXYzine PAMOATE 25 MG CAPSULE (FP) PO PRN (10:06)
[2022-04-05] MEDS: MAGNESIUM HYDROX 2400MG/30ML ORAL SUSPENSION 30 ML CUP PO PRN (10:06)
[2022-04-05] MEDS: LIDOCAINE 5% TOPICAL PATCH TP SCH (10:08)
[2022-04-05] MEDS: traZODone HCL 100 MG TABLET (FP) PO SCH (22:34)
[2022-04-05] MEDS: MELATONIN 5 MG TABLETS PO SCH (22:34)
[2022-04-05] MEDS: LIDOCAINE PATCH REMOVAL MC SCH ×2 (22:34)
[2022-04-05] MEDS: THIAMINE HCL 100 MG TABLET (FP) PO SCH (22:34)
[2022-04-06] MEDS: IBUPROFEN 400 MG TABLET (FP) PO PRN (07:06)
[2022-04-06] MEDS: DIVALPROEX SODIUM 250 MG TABLET E.C. PO SCH ×2 (10:26→21:18)
[2022-04-06] MEDS: ARIPiprazole 5 MG TABLET PO SCH (10:26)
[2022-04-06] MEDS: LIDOCAINE 5% TOPICAL PATCH TP SCH (10:26)
[2022-04-06] MEDS: PRENATAL VITAMINS W/ FOLIC ACID TABLET (FP) PO SCH (10:27)
[2022-04-06] MEDS: MAGNESIUM HYDROX 2400MG/30ML ORAL SUSPENSION 30 ML CUP PO PRN (18:21)
[2022-04-06] MEDS: traZODone HCL 100 MG TABLET (FP) PO SCH (21:18)
[2022-04-06] MEDS: LIDOCAINE PATCH REMOVAL MC SCH ×2 (21:19)
[2022-04-06] MEDS: THIAMINE HCL 100 MG TABLET (FP) PO SCH (21:19)
[2022-04-06] MEDS: MELATONIN 5 MG TABLETS PO SCH (21:19)
[2022-04-07] MEDS: PRENATAL VITAMINS W/ FOLIC ACID TABLET (FP) PO SCH (10:18)
[2022-04-07] MEDS: LIDOCAINE 5% TOPICAL PATCH TP SCH (10:19)
[2022-04-07] MEDS: DIVALPROEX SODIUM 250 MG TABLET E.C. PO SCH ×2 (10:19→21:21)
[2022-04-07] MEDS: ARIPiprazole 5 MG TABLET PO SCH (10:19)
[2022-04-07] MEDS: IBUPROFEN 400 MG TABLET (FP) PO PRN (10:21)
[2022-04-07] MEDS: LIDOCAINE PATCH REMOVAL MC SCH ×2 (21:21→21:38)
[2022-04-07] MEDS: MELATONIN 5 MG TABLETS PO SCH (21:21)
[2022-04-07] MEDS: traZODone HCL 100 MG TABLET (FP) PO SCH (21:21)
[2022-04-07] MEDS: THIAMINE HCL 100 MG TABLET (FP) PO SCH (21:22)
[2022-04-08] MEDS: PRENATAL VITAMINS W/ FOLIC ACID TABLET (FP) PO SCH (10:02)
[2022-04-08] MEDS: DIVALPROEX SODIUM 250 MG TABLET E.C. PO SCH ×2 (10:02→21:56)
[2022-04-08] MEDS: ARIPiprazole 5 MG TABLET PO SCH (10:02)
[2022-04-08] MEDS: LIDOCAINE 5% TOPICAL PATCH TP SCH (10:03)
[2022-04-08] MEDS: NICOTINE 10 MG CARTRIDGE (INHALER) IH PRN (10:03)
[2022-04-08] MEDS: IBUPROFEN 400 MG TABLET (FP) PO PRN ×2 (10:57→21:58)
[2022-04-08] MEDS: LIDOCAINE PATCH REMOVAL MC SCH ×2 (21:56)
[2022-04-08] MEDS: THIAMINE HCL 100 MG TABLET (FP) PO SCH (21:56)
[2022-04-08] MEDS: MELATONIN 5 MG TABLETS PO SCH (21:56)
[2022-04-08] MEDS: traZODone HCL 100 MG TABLET (FP) PO SCH (21:56)
[2022-04-09 08:03] VITALS: BP 98/52; PULSE 69; RESP 16; TEMP 97.9
[2022-04-09] MEDS: ARIPiprazole 5 MG TABLET PO SCH (09:02)
[2022-04-09] MEDS: PRENATAL VITAMINS W/ FOLIC ACID TABLET (FP) PO SCH (09:02)
[2022-04-09] MEDS: DIVALPROEX SODIUM 250 MG TABLET E.C. PO SCH (09:02)
[2022-04-09] MEDS: LIDOCAINE 5% TOPICAL PATCH TP SCH (09:03)
== END 2022-04-09 09:20 | disposition home or self-care (01) | DRG 772 ==
LOC: YASAS 11:23 → Y5N 13:49
PROVIDERS: ADMIT Allergy & Immunology; ATTEND Allergy & Immunology
PROC: HZ42ZZZ Group Counseling for Substance Abuse Treatment, Cognitive-Behavioral (ICD-10-PCS; principal; 2022-03-30)
DX: F10.20 Alcohol dependence, uncomplicated (principal); F14.20 Cocaine dependence, uncomplicated; F12.20 Cannabis dependence, uncomplicated; F17.210 Nicotine dependence, cigarettes, uncomplicated; F25.9 Schizoaffective disorder, unspecified; F31.9 Bipolar disorder, unspecified; F19.24 Other psychoactive substance dependence with psychoactive substance-induced mood disorder; F41.9 Anxiety disorder, unspecified; A60.00 Herpesviral infection of urogenital system, unspecified; B18.2 Chronic viral hepatitis C; E78.5 Hyperlipidemia, unspecified; G40.909 Epilepsy, unspecified, not intractable, without status epilepticus; K59.00 Constipation, unspecified; M54.50 Low back pain, unspecified; G89.29 Other chronic pain; Z62.810 Personal history of physical and sexual abuse in childhood
CPT/HCPCS: 36415; 80053; 80164; 81003; 82962; 85027; 86780; 86803; 87522; 87811; C9803-CS; U0003; U0005